=== PATIENT | female | born 1995 | race Caucasian/White ===

== ENCOUNTER 2017-08-26 18:55 | Emergency (ER) | payer OTHER, SELFPAY | END 2017-08-26 20:27 | disposition home or self-care (01) | PROVIDERS: Emergency Provider Nurse Practitioner Family; Visit Provider Nurse Practitioner Family | DX: A08.4 Viral intestinal infection, unspecified (principal) | CPT/HCPCS: 87804; 99201 ==

== ENCOUNTER 2017-09-20 13:07 | Emergency (ER) | payer MEDICAID, SELFPAY ==
[2017-09-20 13:25] VITALS: BP 114/58; PULSE 90; RESP 20; TEMP 36.6; O2SAT 99; BMI 19.8
--- NOTE | 2017-09-20 13:39 | XR_ITS ---
XR chest 2V Ordering Physician: Roldan Contreras Patient Age: 22 years: Female HISTORY: ITS.REASON: pain in rt rib TECHNIQUE: PA and lateral chest COMPARISON : Previous chest film 12/22/2016 FINDINGS Lungs appear mildly hyperexpanded but clear with no active disease. No definitive focal pneumonia. Upper normal markings at the right base just above right hemidiaphragm I believe reflects confluence of markings and overlapping shadows including possibly nipple shadow. Nothing definitely acute The heart irena and mediastinal structures appear satisfactory. IMPRESSION: . Nothing definitely acute. No significant change.
--- NOTE | 2017-09-20 13:40 | HMH.EDUTC ---
[facility] [place] Disposition Clinical Impression: Bronchitis Disposition: Home, Self-Care Condition on Discharge: Good Instructions: Acute Bronchitis Additional Instructions: Increase fluids, rest, Tylenol or ibuprofen as needed for pain or fever Antibiotics as ordered Follow up with primary care this week If symptoms worsen or do not improve return or be seen in the ER Prescriptions: Azithromycin [Zithromax 250mg tab] 250 mg PO DIRECTED #6 tab Time of Disposition: 14:12 Medical Decision Making Vital Signs: 09/20/17 13:25 Temperature 97.8 F Temperature Source Temporal Artery Scan Pulse Rate [Right Radial] 90 Respiratory Rate 20 Blood Pressure [Right Arm] 114/58 Blood Pressure Mean [Right Arm] 76 Blood Pressure Source [Right Arm] Automatic Cuff Blood Pressure Position [Right Arm] Sitting 02 Sat by Pulse Oximetry 99 Oxygen Delivery Method Room Air Orders (Tests/Meds): ORDERS Category Date Time Status XR chest 2V Stat Exams 09/20/17 13:39 Taken - Parish Inquiry Pt receiving controlled substance: No [facility] [place] HPI - General Stated complaint: cough,ribs are hurting Time Seen by Provider: 09/20/17 13:40 Mode of Arrival: Ambulatory Source of Information: Patient Limitations: No Limitations Description of Symptoms (Recalled from Triage Doc. by RN): Cough x 1 week, rib pain x 2 days from coughing HEENT Symptoms (Recalled from RN notes): No Resp Symptoms (Recalled from RN notes): Yes (cough) Skin Symptoms (Recalled from RN notes): No MS Symptoms (Recalled from RN notes): Yes (rib pain) Functional Status (Recalled from RN notes): NA - History of Present Illness Provider Complaint: 22-year-old female presents for flulike symptoms that started 2 weeks ago. Patient states now she is coughing up yellow-green sputum and nasal congestion. Patient states she has pain in the right posterior rib. - Related Data Previous Rx's Medication Instructions Recorded Azithromycin [Zithromax 250mg 250 mg PO DIRECTED #6 tab 09/20/17 tab] Allergies Allergy/AdvReac Type Severity Reaction Status Date / Time No Known Allergies Allergy Verified 09/20/17 13:32 - Worker's Comp Is this a Worker's Comp case?: No Is this an [facility] Worker's Comp?: No Is this a [facility] Worker's Comp?: No [facility] History I have reviewed the patient's past medical history: Yes Medical History: Denies:: Cancer, Diabetes Mellitus Type 1, Diabetes Mellitus Type 2, MRSA Laterality Cases: Bilateral: Tonsillectomy Amputation: No Fractures: No - *Social History Educational Level: Attended High School Smoking Status: Current every day smoker Tobacco Type: cigarettes Alcohol Intake: never - Psychiatric History Expresses thoughts of harming self/others: None Suicide Plan Description: No Plan ROS Obtained: Yes Systems reviewed as appropriate & no additional complaints - Constitutional Constitutional: Reports system reviewed and no additional complaints, except as docu - Eyes Eyes: Reports system reviewed and no additional complaints, except as docu - ENT Ears, Nose, Mouth, and Throat: Reports system reviewed and no additional complaints, except as docu, Reports nasal discharge - Cardiovascular Cardiovascular: Reports system reviewed and no additional complaints, except as docu - Respiratory Respiratory: Yes system reviewed and no additional complaints, except as docu, Yes as per HPI, Yes change in phlegm color, Yes chest congestion, Yes cough, Yes pain with cough - Gastrointestinal Gastrointestingal: Reports: system reviewed and no additional complaints, except as docu - Musculoskeletal Musculoskeletal: Reports system reviewed and no additional complaints, except as docu - Integumentary/Breasts Skin/Breast: Reports system reviewed and no additional complaints, except as docu - Neurologic Neurologic: Reports system reviewed and no additional complaints, except as docu - Endocrine Endocrine: Reports system revie
--- NOTE | 2017-09-20 13:43 | ED_ITS ---
[facility] [place] Disposition Clinical Impression: Bronchitis Disposition: Home, Self-Care Condition on Discharge: Good Instructions: Acute Bronchitis Additional Instructions: Increase fluids, rest, Tylenol or ibuprofen as needed for pain or fever Antibiotics as ordered Follow up with primary care this week If symptoms worsen or do not improve return or be seen in the ER Prescriptions: Azithromycin [Zithromax 250mg tab] 250 mg PO DIRECTED #6 tab Time of Disposition: 14:12 Medical Decision Making Vital Signs: 09/20/17 13:25 Temperature 97.8 F Temperature Source Temporal Artery Scan Pulse Rate [Right Radial] 90 Respiratory Rate 20 Blood Pressure [Right Arm] 114/58 Blood Pressure Mean [Right Arm] 76 Blood Pressure Source [Right Arm] Automatic Cuff Blood Pressure Position [Right Arm] Sitting 02 Sat by Pulse Oximetry 99 Oxygen Delivery Method Room Air Orders (Tests/Meds): ORDERS Category Date Time Status XR chest 2V Stat Exams 09/20/17 13:39 Taken - Parish Inquiry Pt receiving controlled substance: No [facility] [place] HPI - General Stated complaint: cough,ribs are hurting Time Seen by Provider: 09/20/17 13:40 Mode of Arrival: Ambulatory Source of Information: Patient Limitations: No Limitations Description of Symptoms (Recalled from Triage Doc. by RN): Cough x 1 week, rib pain x 2 days from coughing HEENT Symptoms (Recalled from RN notes): No Resp Symptoms (Recalled from RN notes): Yes (cough) Skin Symptoms (Recalled from RN notes): No MS Symptoms (Recalled from RN notes): Yes (rib pain) Functional Status (Recalled from RN notes): NA - History of Present Illness Provider Complaint: 22-year-old female presents for flulike symptoms that started 2 weeks ago. Patient states now she is coughing up yellow-green sputum and nasal congestion. Patient states she has pain in the right posterior rib. - Related Data Previous Rx's Medication Instructions Recorded Azithromycin [Zithromax 250mg 250 mg PO DIRECTED #6 tab 09/20/17 tab] Allergies Allergy/AdvReac Type Severity Reaction Status Date / Time No Known Allergies Allergy Verified 09/20/17 13:32 - Worker's Comp Is this a Worker's Comp case?: No Is this an [facility] Worker's Comp?: No Is this a [facility] Worker's Comp?: No [facility] History I have reviewed the patient's past medical history: Yes Medical History: Denies:: Cancer, Diabetes Mellitus Type 1, Diabetes Mellitus Type 2, MRSA Laterality Cases: Bilateral: Tonsillectomy Amputation: No Fractures: No - *Social History Educational Level: Attended High School Smoking Status: Current every day smoker Tobacco Type: cigarettes Alcohol Intake: never - Psychiatric History Expresses thoughts of harming self/others: None Suicide Plan Description: No Plan ROS Obtained: Yes Systems reviewed as appropriate & no additional complaints - Constitutional Constitutional: Reports system reviewed and no additional complaints, except as docu - Eyes Eyes: Reports system reviewed and no additional complaints, except as docu - ENT Ears, Nose, Mouth, and Throat: Reports system reviewed and no additional complaints, except as docu, Reports nasal discharge - Cardiovascular Cardiovascular: Reports system reviewed and no additional complaints, except as docu - R
== END 2017-09-20 14:36 | disposition home or self-care (01) ==
PROVIDERS: Emergency Provider Nurse Practitioner Family; Family Provider Emergency Medicine
DX: J20.9 Acute bronchitis, unspecified (principal); F17.210 Nicotine dependence, cigarettes, uncomplicated
CPT/HCPCS: 71046; 99202

== ENCOUNTER 2017-10-16 02:00 | Emergency (ER) | payer MEDICAID, SELFPAY ==
[2017-10-16 02:04] VITALS: BP 104/62; PULSE 90; RESP 18; TEMP 36.8; O2SAT 98; BMI 18.8
[2017-10-16 02:35] LABS: Strep Scrn Group A (Rapid) Negative (Negative)
--- NOTE | 2017-10-16 02:39 | XR_ITS ---
XR chest 2V HISTORY: ITS.REASON: productive cough ORDERING PHYSICIAN: Desmond Palencia MD PATIENT AGE: 22 years COMPARISON: 09/20/2017 FINDINGS: The cardiomediastinal silhouette and pulmonary vascularity are within normal limits. The lungs are clear without infiltrates, suspicious nodules, or pleural effusions. No acute bony abnormalities. IMPRESSION: Negative chest, no acute finding, no significant change
[2017-10-16 03:02] LABS: Basophils # 0.1 K/mm3 (0-0.2); Basophils % 0.4 % (0.1-2.0); Eosinophils # 0.4 K/mm3 (0.0-0.4); Eosinophils % 3.1 % (0.1-12.0); Hemoglobin 13.3 g/dL (12.2-16.2); Lymphocytes # 2.6 K/mm3 (0.7-4.5); Lymphocytes % 21.8 K/mm3 (10-50); Mean Corpuscular HGB Conc 33.2 g/dL (31.8-35.4); Mean Corpuscular Hemoglobin 29.2 pg (27.0-31.2); Mean Corpuscular Volume 88.1 fl (81-99); Mean Platelet Volume 8.3 fl (7.4-10.4); Monocytes # 0.6 K/mm3 (0.1-1.0); Monocytes % 4.6 % (1.7-9.3); Neutrophils # 8.5 K/mm3 (1.8-7.8); Neutrophils % 70.2 % (37.0-80.0); Platelet Count 232 K/mm3 (142-424); Red Blood Count 4.54 M/mm3 (4.20-5.40); Red Cell Distribution Width 12.8 % (11.5-17.5); White Blood Count 12.1 K/mm3 (4.8-10.8)
[2017-10-16 03:04] LABS: Appearance,Urine CLEAR (Clear); Bilirubin,Urine Negative (Negative); Blood, Urine Negative (Negative); Color,Urine YELLOW (Yellow); Glucose,Urine (UA) Negative (Negative); Ketones,Urine Negative (Negative); Leukocyte Esterase,Urine Negative (Negative); Microscopic, Urine URINE MICROSCOPIC (MICROSCOPIC); Nitrate,Urine Negative (Negative); Protein,Urine TRACE (Negative); Specific Gravity, Urine 1.025 (1.005-1.030); Urobilinogen,Urine 0.2 EU/dl (0.2)
[2017-10-16 03:07] LABS: Urine Pregnancy, HCG Qual. Negative (Negative)
[2017-10-16 03:25] LABS: Bacteria,Urine 1+ /lpf; Mucus,Urine 2+ /lpf
[2017-10-16 03:39] LABS: Alanine Aminotransferase 30 U/L (12-78); Albumin Level 3.7 gm/dL (3.4-5.0); Albumin/Globulin Ratio 0.9 (1.1-1.8); Alkaline Phosphatase 114 U/L (46-116); Anion Gap 12.8 mEq/L (5-15); Aspartate Amino Transferase 19 U/L (15-37); Bilirubin,Total 0.3 mg/dL (0.2-1.0); Blood Urea Nitrogen 15 mg/dL (7-18); Carbon Dioxide 27 mmol/L (21.0-32.0); Chloride 104 mmol/L (98-107); Creatinine Clearance Estimated 90 mL/min (0-300); Estimated Glomerular Filt Rate 105 ml/min (>60); GFR (African American) 127 ML/MIN (>60); Globulin 4.3 gm/dl (1.3-3.2); Glucose 95 mg/dL (74-106); Potassium 3.8 mmoL/L (3.5-5.1); Sodium 140 mmol/L (136-145)
--- NOTE | 2017-10-16 03:47 | HMH.EDNVD ---
ED Disposition Clinical Impression: Bronchitis Disposition: Home, Self-Care Condition on Discharge: Good Instructions: Nausea and Vomiting-Adult Additional Instructions: use meds and see pcp for follow up Prescriptions: Azithromycin [Zithromax 250mg tab] 250 mg PO DIRECTED #6 tab Benzonatate [Tessalon Perle 100mg Cap] 100 mg PO TID #30 cap Ondansetron HCl [Zofran 4mg Tab] 4 mg PO TID #15 tab - Critical Care Critical Care Time: No Attestation: On 10/16/17, the high probability of a clinically significant, sudden or life threatening deterioration of the following system(s) required my full and direct attention, intervention and personal management. The time I documented below is in addition to time spent performing reported procedures but includes the following listed in this critical care notation. Medical Decision Making - Medical Records Medical records reviewed: Yes: I reviewed the patient's medical records. Vital Signs: 10/16/17 02:04 Temperature 98.2 F Temperature Source Oral Pulse Rate [Right Radial] 90 Respiratory Rate 18 Blood Pressure [Right Arm] 104/62 Blood Pressure Mean [Right Arm] 76 Blood Pressure Source [Right Arm] Automatic Cuff Blood Pressure Position [Right Arm] Sitting 02 Sat by Pulse Oximetry 98 Oxygen Delivery Method Room Air - Lab Data Lab results reviewed: Yes: I reviewed the patient's lab results. Lab Results 10/16/17 02:15: Influenza Type A Ag Negative, Influenza Type B Ag Negative, Group A Strep Rapid Negative 10/16/17 02:55: WBC 12.1 H, RBC 4.54, Hgb 13.3, Hct 40.0, MCV 88.1, MCH 29.2, MCHC 33.2, RDW 12.8, Plt Count 232, MPV 8.3, Neut % (Auto) 70.2, Lymph % (Auto) 21.8, [place] % (Auto) 4.6, Eos % (Auto) 3.1, Baso % (Auto) 0.4, Neut # (Auto) 8.5 H, Lymph # (Auto) 2.6, [place] # (Auto) 0.6, Eos # (Auto) 0.4, Baso # (Auto) 0.1 10/16/17 02:55: Sodium 140, Potassium 3.8, Chloride 104, Carbon Dioxide 27, Anion Gap 12.8, BUN 15, Creatinine 0.70, Estimated Creat Clear 90, Estimated GFR 105, Est GFR ( Amer) 127, Glucose 95, Calcium 9.0, Total Bilirubin 0.3, AST 19, ALT 30, Alkaline Phosphatase 114, Total Protein 8.0, Albumin 3.7, Globulin 4.3 H, Albumin/Globulin Ratio 0.9 L 10/16/17 03:00: Urine Color Yellow, Urine Appearance Clear, Urine pH 6.0, Ur Specific [place] 1.025, Urine Protein Trace, Urine Glucose (UA) Negative, Urine Ketones Negative, Urine Blood Negative, Urine Nitrate Negative, Urine Bilirubin Negative, Urine Urobilinogen 0.2, Ur Leukocyte Esterase Negative, Urine WBC 3-5, Ur Squamous Epith Cells 3-5, Urine Bacteria 1+, Urine Mucus 2+ 10/16/17 03:00: Urine HCG, Qual Negative Result diagrams: 10/16/17 02:55 10/16/17 02:55 Orders (Tests/Meds): ORDERS Category Date Time Status Chest XR 2 view (NOT portable) [XR chest 2V] Stat Exams 10/16/17 02:39 Ordered Strep Screen Confirmation Stat Micro 10/16/17 02:15 Received - Radiology Data #1 Image(s): Chest Image Reviewed: Yes I reviewed the patient's radiology image Preliminary Findings: Normal/NAD - Parish Inquiry Pt receiving controlled substance: No Nausea/Vomiting/Diarrhea HPI - General Chief complaint: Nausea/Vomiting/Diarrhea Stated complaint: Vomiting,Cough,Sore Throat Time Seen by Provider: 10/16/17 03:48 Mode of Arrival: Ambulatory Source of Information: Patient Limitations: No Limitations Description of Symptoms (Recalled from ER Triage Doc. by RN): Pt. reprots nasal/head congestion, productive cough, sore throat, vomiting, and chills that started yesterday. 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
--- NOTE | 2017-10-16 03:56 | ED_ITS ---
ED Disposition Clinical Impression: Bronchitis Disposition: Home, Self-Care Condition on Discharge: Good Instructions: Nausea and Vomiting-Adult Additional Instructions: use meds and see pcp for follow up Prescriptions: Azithromycin [Zithromax 250mg tab] 250 mg PO DIRECTED #6 tab Benzonatate [Tessalon Perle 100mg Cap] 100 mg PO TID #30 cap Ondansetron HCl [Zofran 4mg Tab] 4 mg PO TID #15 tab - Critical Care Critical Care Time: No Attestation: On 10/16/17, the high probability of a clinically significant, sudden or life threatening deterioration of the following system(s) required my full and direct attention, intervention and personal management. The time I documented below is in addition to time spent performing reported procedures but includes the following listed in this critical care notation. Medical Decision Making - Medical Records Medical records reviewed: Yes: I reviewed the patient's medical records. Vital Signs: 10/16/17 02:04 Temperature 98.2 F Temperature Source Oral Pulse Rate [Right Radial] 90 Respiratory Rate 18 Blood Pressure [Right Arm] 104/62 Blood Pressure Mean [Right Arm] 76 Blood Pressure Source [Right Arm] Automatic Cuff Blood Pressure Position [Right Arm] Sitting 02 Sat by Pulse Oximetry 98 Oxygen Delivery Method Room Air - Lab Data Lab results reviewed: Yes: I reviewed the patient's lab results. Lab Results 10/16/17 02:15: Influenza Type A Ag Negative, Influenza Type B Ag Negative, Group A Strep Rapid Negative 10/16/17 02:55: WBC 12.1 H, RBC 4.54, Hgb 13.3, Hct 40.0, MCV 88.1, MCH 29.2, MCHC 33.2, RDW 12.8, Plt Count 232, MPV 8.3, Neut % (Auto) 70.2, Lymph % (Auto) 21.8, [place] % (Auto) 4.6, Eos % (Auto) 3.1, Baso % (Auto) 0.4, Neut # (Auto) 8.5 H, Lymph # (Auto) 2.6, [place] # (Auto) 0.6, Eos # (Auto) 0.4, Baso # (Auto) 0.1 10/16/17 02:55: Sodium 140, Potassium 3.8, Chloride 104, Carbon Dioxide 27, Anion Gap 12.8, BUN 15, Creatinine 0.70, Estimated Creat Clear 90, Estimated GFR 105, Est GFR ( Amer) 127, Glucose 95, Calcium 9.0, Total Bilirubin 0.3, AST 19, ALT 30, Alkaline Phosphatase 114, Total Protein 8.0, Albumin 3.7, Globulin 4.3 H, Albumin/Globulin Ratio 0.9 L 10/16/17 03:00: Urine Color Yellow, Urine Appearance Clear, Urine pH 6.0, Ur Specific [place] 1.025, Urine Protein Trace, Urine Glucose (UA) Negative, Urine Ketones Negative, Urine Blood Negative, Urine Nitrate Negative, Urine Bilirubin Negative, Urine Urobilinogen 0.2, Ur Leukocyte Esterase Negative, Urine WBC 3-5 , Ur Squamous Epith Cells 3-5, Urine Bacteria 1+, Urine Mucus 2+ 10/16/17 03:00: Urine HCG, Qual Negative Result diagrams: 10/16/17 02:55 10/16/17 02:55 Orders (Tests/Meds): ORDERS Category Date Time Status Chest XR 2 view (NOT portable) [XR chest 2V] Stat Exams 10/16/17 02:39 Ordered Strep Screen Confirmation Stat Micro 10/16/17 02:15 Received - Radiology Data #1 Image(s): Chest Image Reviewed: Yes I reviewed the patient's radiology image Preliminary Findings: Normal/NAD - Parish Inquiry Pt receiving controlled substance: No Nausea/Vomiting/Diarrhea HPI - General Chief complaint: Nausea/Vomiting/Diarrhea Stated complaint: Vomiting,Cough,Sore Throat Time Seen by Provider: 10/16/17 03:48 Mode of Arrival: Ambulatory Source of Information: Patient Limitations: No Limitations Description of Symptoms (Recalled from ER Triage Doc. by RN): Pt. rep
[2017-10-16 04:15] VITALS: BP 110/64; PULSE 90; RESP 18; TEMP 36.7; O2SAT 98
== END 2017-10-16 04:15 | disposition home or self-care (01) ==
PROVIDERS: Emergency Provider Emergency Medicine; Family Provider Emergency Medicine
DX: J20.9 Acute bronchitis, unspecified (principal); F17.210 Nicotine dependence, cigarettes, uncomplicated
CPT/HCPCS: 71046; 80053; 81001; 81025; 85025; 87275; 87276; 87430; 99282

== ENCOUNTER 2017-11-10 20:19 | Emergency (ER) | payer MEDICAID, SELFPAY ==
[2017-11-10 20:56] VITALS: BP 102/63; PULSE 82; RESP 18; TEMP 36.9; O2SAT 98; BMI 20.7
--- NOTE | 2017-11-10 21:31 | HMH.EDUTC ---
[facility] [place] Disposition Clinical Impression: Upper respiratory virus Disposition: Home, Self-Care Condition on Discharge: Good Instructions: DI for Viral Upper Respiratory Infection -- Adult Additional Instructions: * No sign of bacterial infection. Likely viral. Virus can take 7-14 days to run their course * Nasal Saline to remove nasal drainage and help with nasal congestion. Hard to eat, drink, sleep with nasal congestion so important to keep nose cleaned out * Monitor Temp. follow up if fever deveops * Encourage fluids, water, gatorade, powerade, pedialyte if /toddler/child * warm salt water gargles * warm fluids * sore throat lozenges * sleep elevated * humidifier/vaporizer * Mucinex during the day for your cough and cough suppressant only at night. Be sure to drink lots of water. Insurance may not cover a prescription of mucinex. Might be cheaper to get 400mg tablets and take 2 tablets morning, midday and evening all with lots of water. * Promethazine DM cough syrup will cause drowsiness. Use it only at night. No driving, operating machinery or caring for small children after taking it. Follow up with primary care IMMEDIATELY for new or worsening symptoms OR no noticeable improvement over the next 48-72 hours. 911 for difficulty breathing or swallowing. Prescriptions: Promethazine/Dextromethorphan [Promethazine-Dm Syrup] 5 - 10 ml PO HS PRN #120 ml PRN Reason: Cough Time of Disposition: 22:10 Medical Decision Making - Parish Inquiry Pt receiving controlled substance: No Vital Signs: 11/10/17 20:56 11/10/17 22:06 Temperature 98.4 F 98.4 F Temperature Source Temporal Artery Scan Temporal Artery Scan Pulse Rate 82 Pulse Rate [Brachial] 82 Respiratory Rate 18 18 Blood Pressure 102/63 Blood Pressure [Right Arm] 102/63 Blood Pressure Mean [Right Arm] 76 Blood Pressure Source [Right Arm] Automatic Cuff Blood Pressure Position Sitting Blood Pressure Position [Right Arm] Sitting 02 Sat by Pulse Oximetry 98 Oxygen Delivery Method Room Air Room Air [facility] [place] HPI - General Stated complaint: cough Time Seen by Provider: 11/10/17 21:31 Mode of Arrival: Ambulatory Source of Information: Patient Limitations: No Limitations Description of Symptoms (Recalled from Triage Doc. by RN): DX WITH BRONCHITIS LAST WEEK AND HAS NOT GOTTEN ANY BETTER HEENT Symptoms (Recalled from RN notes): No Resp Symptoms (Recalled from RN notes): Yes Skin Symptoms (Recalled from RN notes): No MS Symptoms (Recalled from RN notes): No Functional Status (Recalled from RN notes): NA - History of Present Illness Provider Complaint: c/o cough x 2-3 days. I think I have bronchitis again . Dx w/ bronchitis one month ago. Symptoms resolved but cough returned over the weekend. Daughter w/ same symptoms. No treatment before arrival. Requesting something to help her sleep because cough worse at night. + tobacco use. No wheezing or fever. - Related Data Previous Rx's Medication Instructions Recorded Azithromycin [Zithromax 250mg 250 mg PO DIRECTED #6 tab 10/16/17 tab] Benzonatate [Tessalon Perle 100mg 100 mg PO TID #30 cap 10/16/17 Cap] Ondansetron HCl [Zofran 4mg Tab] 4 mg PO TID #15 tab 10/16/17 Promethazine/Dextromethorphan 5 - 10 ml PO HS PRN #120 ml 11/10/17 [Promethazine-Dm Syrup] Allergies Allergy/AdvReac Type Severity Reaction Status Date / Time No Known Allergies Allergy Verified 10/16/17 02:11 - Worker's Comp Is this a Worker's Comp case?: No [facility] History I have reviewed the patient's past medical history: Yes Medical History: Denies:: Asthma, Cancer, Chronic Obstructive Pulmonary Disease (COPD), Diabetes Mellitus Type 1, Diabetes Mellitus Type 2, Hypertension, MRSA Laterality Cases: Bilateral: Tonsillectomy Other Surgeries: Yes: , Other (tonsillectomy, endometriosis) Amputation: No Fractures: No - Social History Smoking Status: Current every day smoker Tobacco Type: cigar
[2017-11-10 22:06] VITALS: BP 102/63; PULSE 82; RESP 18; TEMP 36.9; O2SAT 98
== END 2017-11-10 22:12 | disposition home or self-care (01) ==
PROVIDERS: Emergency Provider Nurse Practitioner Family; Family Provider Emergency Medicine
DX: J06.9 Acute upper respiratory infection, unspecified (principal)
CPT/HCPCS: 99202

== ENCOUNTER → 2019-10-19 09:03 | Outpatient (CLI) | payer OTHER, SELFPAY ==
[2019-10-21 23:43] LABS: Neisseria gonorrhoeae, NAA Negative (Negative)
== END ==
PROVIDERS: Visit Provider Nurse Practitioner Obstetrics & Gynecology
DX: Z72.51 High risk heterosexual behavior (principal)
CPT/HCPCS: 87491; 87591

== ENCOUNTER 2020-07-12 18:07 | Emergency (ER) | payer OTHER, SELFPAY ==
--- NOTE | 2020-07-12 18:00 | ECG_ITS ---
APPROVED REPORT Exam: Resting ECG HR:96 bpm ECG Measurements Heart Rate 96 AXES MS 118 P 65 QRSd 82 QRS 61 QT 328 T 43 QTc 414 Conclusion Normal sinus rhythm with sinus arrhythmia Normal ECG Electronically signed by : Jose Enrique Sesay, 07/14/2020 06:57:31
[2020-07-12 18:07] VITALS: BP 118/76; PULSE 107; RESP 18; TEMP 36.6; O2SAT 98; BMI 22.1
--- NOTE | 2020-07-12 18:09 | XR_ITS ---
PROCEDURE: XR CHEST PORTABLE CLINICAL HISTORY: SOB Sudden onset chest pain and shortness of breath COMPARISON: CR CXR2V XR chest 2V from 09/20/2017 CR CXR2V XR chest 2V from 10/16/2017 CR CXR2V XR chest 2V from 05/07/2018 FINDINGS: The cardiomediastinal silhouette and pulmonary vascularity are within normal limits. The lungs are clear without infiltrates, suspicious nodules, or pleural effusions. No acute bony abnormalities. IMPRESSION: No acute findings. Dictated by: Carlos Dale MD 07/13/2020 05:19 Carlos Dale MD in [place] 07/13/2020 05:19
[2020-07-12 18:21] LABS: Microscopic, Urine URINE MICROSCOPIC (MICROSCOPIC)
[2020-07-12 18:25] LABS: Basophils % 0.5 % (0.1-2.0); Eosinophils # 0.1 K/mm3 (0.0-0.4); Eosinophils % 1.2 % (0.1-12.0); Hematocrit 44.2 % (37.0-47.0); Hemoglobin 14.9 g/dL (12.2-16.2); Lymphocytes # 2.5 K/mm3 (0.7-4.5); Mean Corpuscular HGB Conc 33.6 g/dL (31.8-35.4); Mean Corpuscular Hemoglobin 31.7 pg (27.0-31.2); Mean Corpuscular Volume 94.2 fl (81-99); Mean Platelet Volume 8.1 fl (7.4-10.4); Monocytes # 0.4 K/mm3 (0.1-1.0); Monocytes % 5.5 % (1.7-9.3); Neutrophils # 4.4 K/mm3 (1.8-7.8); Neutrophils % 58.7 % (37.0-80.0); Platelet Count 190 K/mm3 (142-424); Red Blood Count 4.69 M/mm3 (4.20-5.40); Red Cell Distribution Width 13.2 % (11.5-17.5); White Blood Count 7.4 K/mm3 (4.8-10.8)
[2020-07-12 18:26] LABS: Appearance,Urine CLEAR (Clear); Bilirubin,Urine Negative (Negative); Blood, Urine Negative (Negative); Color,Urine YELLOW (Yellow); Glucose,Urine (UA) Negative (Negative); Ketones,Urine Negative (Negative); Leukocyte Esterase,Urine Negative (Negative); Nitrate,Urine Negative (Negative); PH,Urine 6.5 (5.0-8.5); Protein,Urine Negative (Negative); Specific Gravity, Urine 1.025 (1.005-1.030); Urobilinogen,Urine 0.2 EU/dl (0.2)
[2020-07-12 18:27] LABS: Chloride 105 mmol/L (98-107); Potassium 3.7 mmoL/L (3.5-5.1); Sodium 143 mmol/L (136-145)
--- NOTE | 2020-07-12 18:28 | HMH.EDGENADL ---
ED Disposition Clinical Impression: Panic anxiety syndrome Syncope Qualifiers: Encounter type: initial encounter Disposition: Still a Patient Condition on Discharge: Undetermined Referrals: Jose Enrique Majano MD [Primary Care Provider] - - Critical Care Critical Care Time: No Attestation: On 07/12/20, the high probability of a clinically significant, sudden or life threatening deterioration of the following system(s) required my full and direct attention, intervention and personal management. The time I documented below is in addition to time spent performing reported procedures but includes the following listed in this critical care notation. Medical Decision Making - Medical Records Medical records reviewed: Yes: I reviewed the patient's medical records. - Parish Inquiry Pt receiving controlled substance: No Vital Signs: 07/12/20 18:07 Temperature 98 F Temperature Source Oral Pulse Rate [Radial] 107 H Respiratory Rate 18 Blood Pressure [Right Arm] 118/76 Blood Pressure Mean [Right Arm] 90 Blood Pressure Position [Right Arm] Sitting 02 Sat by Pulse Oximetry 98 Oxygen Delivery Method Room Air - Lab Data Lab Results 07/12/20 18:10: WBC 7.4, RBC 4.69, Hgb 14.9, Hct 44.2, MCV 94.2, MCH 31.7 H, MCHC 33.6, RDW 13.2, Plt Count 190, MPV 8.1, Neut % (Auto) 58.7, Lymph % (Auto) 34.0, [place] % (Auto) 5.5, Eos % (Auto) 1.2, Baso % (Auto) 0.5, Neut # (Auto) 4.4, Lymph # (Auto) 2.5, [place] # (Auto) 0.4, Eos # (Auto) 0.1, Baso # (Auto) 0.0 07/12/20 18:10: Sodium 143, Potassium 3.7, Chloride 105, Carbon Dioxide 27, Anion Gap 14.7, BUN 12, Creatinine 0.80, Estimated Creat Clear 91, Estimated GFR 88, Est GFR ( Amer) 107, Glucose 121 H, Calcium 9.7, Total Bilirubin 0.3, Direct Bilirubin 0.1, Conjugated Bilirubin 0.0, Indirect Bilirubin 0.2, Unconjugated Bilirubin 0.2, AST 95 H, ALT 52, Alkaline Phosphatase 47, Troponin I < 0.01, Total Protein 7.8, Albumin 4.9 07/12/20 18:10: Urine Color Yellow, Urine Appearance Clear, Urine pH 6.5, Ur Specific [place] 1.025, Urine Protein Negative, Urine Glucose (UA) Negative, Urine Ketones Negative, Urine Blood Negative, Urine Nitrate Negative, Urine Bilirubin Negative, Urine Urobilinogen 0.2, Ur Leukocyte Esterase Negative, Urine WBC 3-5, Ur Squamous Epith Cells 5-10, Urine Bacteria Trace, Urine Mucus 3+ 07/12/20 18:10: Urine HCG, Qual Negative Result diagrams: 07/12/20 18:10 07/12/20 18:10 Orders (Tests/Meds): ED MEDICATIONS Discontinued Medications Generic Name Dose Route Start Last Admin Trade Name Lexxq PRN Reason Stop Dose Admin Alprazolam 0.5 mg 07/12/20 18:36 07/12/20 19:14 Alprazolam 0.5mg Tablet PO 07/12/20 18:37 0.5 mg ONCE ONE Administration Ketorolac Tromethamine 15 mg 07/12/20 19:45 07/12/20 19:46 Ketorolac 30mg/Ml Vial IV 07/12/20 19:46 15 mg ONCE ONE Administration ORDERS Category Date Time Status XR chest portable Stat Exams 07/12/20 18:09 Taken Troponin I Q3H Lab 07/12/20 21:15 Ordered Troponin I Q3H Lab 07/13/20 00:15 Ordered - ECG Data Tracing #1 ECG normal with no acute: arrhythmias, ischemia, conduction abnormalities, chamber hypertrophy Medical Decision Narrative: 24-year-old female who had a syncope-like episode concern for seizure activity. Patient has no history of seizures and the episode she described is consistent with a panic attack with hyperventilation that caused her hands to be numb and then resulted in syncopal episode that was short associated with some jerking and without a postictal phase upon awakening. She is PERC negative for pulmonary embolism and will be evaluated with syncope work-up including troponin, CBC, CMP, chest x-ray. X-ray is unremarkable initial troponin is negative and remainder labs unremarkable required no action. Patient is given IV Toradol 50 mg for chest pain pressure worse with taking a deep breath and Xanax for anxiety. Pending second troponin at the time of handoff
[2020-07-12 18:29] LABS: Bilirubin,Unconjugated 0.2 mg/dL (0.0-1.1); Blood Urea Nitrogen 12 mg/dl (7-17); Creatinine Clearance Estimated 91 mL/min (50-200); Estimated Glomerular Filt Rate 88 ml/min (>60); GFR (African American) 107 ML/MIN (>60)
[2020-07-12 18:30] LABS: Alanine Aminotransferase 52 U/L (12-78); Albumin Level 4.9 g/dl (3.5-5.0); Alkaline Phosphatase 47 U/L (38-126); Anion Gap 14.7 mEq/L (5-15); Aspartate Amino Transferase 95 U/L (14-36); Bilirubin,Direct 0.1 mg/dl (0.0-0.4); Bilirubin,Indirect 0.2 mg/dL (0.0-0.9); Bilirubin,Total 0.3 mg/dl (0.2-1.3); Calcium 9.7 mg/dl (8.4-10.2); Carbon Dioxide 27 mmol/L (22.0-30.0); Glucose 121 mg/dl (74-100); Total Protein,Serum 7.8 g/dl (6.3-8.2)
[2020-07-12 18:40] LABS: Urine Pregnancy, HCG Qual. Negative (Negative)
[2020-07-12 18:44] LABS: Bacteria,Urine Trace /lpf; Mucus,Urine 3+ /lpf
[2020-07-12 18:51] LABS: Troponin I < 0.01 ng/ml (0.00-0.034)
[2020-07-12 21:22] LABS: Troponin I < 0.01 ng/ml (0.00-0.034)
[2020-07-12 21:38] VITALS: BP 100/61; PULSE 67; RESP 14; TEMP 36.8; O2SAT 96
== END 2020-07-12 21:46 | disposition home or self-care (01) ==
PROVIDERS: Emergency Provider Student in an Organized Health Care Education/Training Program; PCP Family Medicine
DX: R55 Syncope and collapse (principal); F41.0 Panic disorder [episodic paroxysmal anxiety]; F17.210 Nicotine dependence, cigarettes, uncomplicated
CPT/HCPCS: 71045; 80048; 80076; 81001; 81025; 84484; 85025; 93005; 96374; 99283

== ENCOUNTER → 2020-11-29 08:42 | Outpatient (CLI) | payer OTHER, SELFPAY ==
--- NOTE | 2020-11-29 08:53 | US_ITS ---
PROCEDURE: US SOFT TISSUE HEAD AND NECK CLINICAL INDICATION: LYMPHADENOPATHY OF HEAD AND NECK COMPARISON: No exams were available for comparison FINDINGS: Lymph nodes are noted in the bilateral level 2 a cervical yari stations adjacent to the submandibular gland measuring up to 1 times 1.1 x 1 x 0.5 centimeters, demonstrate central fatty hilum and normal morphology. Submandibular glands appear unremarkable. IMPRESSION: Bilateral cervical lymph nodes measuring up to 1.1 centimeters, demonstrate normal morphology. No suspicious mass lesions. Dictated by: Alisa Maher 11/29/2020 15:45 Alisa Maher in [facility] 11/29/2020 15:45
--- NOTE | 2020-11-29 09:36 | MR_ITS ---
PROCEDURE: MR HEAD/BRAIN WO CON CLINICAL INDICATION: RECURRENT HEADACHE, BLURRED VISION COMPARISON: No exams were available for comparison TECHNIQUE: Routine multiplanar multi echo sequences are performed without gadolinium enhancement. FINDINGS: No evidence of restricted diffusion is noted. Low-lying cerebellar tonsils noted. The ventricles are normal in size, shape and symmetry. The faust-white matter differentiation is within normal limits. Brain parenchymal volume is appropriate for the age of the patient. Small mucous retention cyst is noted in the sphenoid sinus. The sella appears unremarkable. No midline shift or mass effect. The infundibular stalk is midline. Visualized optic chiasma appears within normal limits. The visualized medial temporal lobes demonstrate no abnormal signal intensity. IMPRESSION: Unremarkable MRI of the brain. Dictated by: Alisa Maher 11/29/2020 15:59 Alisa Maher in [facility] 11/29/2020 15:59
== END ==
PROVIDERS: PCP Family Medicine; Visit Provider Nurse Practitioner Family
DX: R51.9 Headache, unspecified (principal); H53.8 Other visual disturbances; R59.0 Localized enlarged lymph nodes
CPT/HCPCS: 70551; 76536

== ENCOUNTER → 2020-12-03 09:21 | Outpatient (CLI) | payer OTHER, SELFPAY ==
--- NOTE | 2020-12-03 09:26 | XR_ITS ---
PROCEDURE: XR MULTIPLE SPINE 6+V CLINICAL INDICATION: PAIN IN THORACIC SPINE, CERVICALGIA COMPARISON: No exams were available for comparison FINDINGS: Cervical spine: Reversal of cervical lordosis which may be due to patient positioning or muscle spasm. There is normal alignment. No acute fracture or dislocation. The disc spaces and neural foramina are well preserved. Thoracic spine: Normal alignment. Small Schmorl's nodes are present along the inferior endplate T11 and T10. Minimal anterior osteophytes in the midthoracic spine. No acute fracture or dislocation. No lytic or blastic change IMPRESSION: 1. Reversal of cervical lordosis. 2. Mild degenerative change thoracic spine Dictated by: Carlos Dale MD 12/03/2020 11:03 Carlos Dale MD in [facility] 12/03/2020 11:03
== END ==
PROVIDERS: PCP Nurse Practitioner Family; Visit Provider Nurse Practitioner Family
DX: M54.2 Cervicalgia (principal); M54.6 Pain in thoracic spine
CPT/HCPCS: 72084

== ENCOUNTER → 2021-01-01 09:20 | Outpatient (CLI) | payer OTHER, SELFPAY | PROVIDERS: PCP Family Medicine; Visit Provider Nurse Practitioner Family | DX: Z20.822 Contact with and (suspected) exposure to COVID-19 (principal) | CPT/HCPCS: U0003 ==

== ENCOUNTER → 2021-04-17 15:32 | Outpatient (CLI) | payer OTHER, SELFPAY ==
[2021-04-19 09:32] LABS: HSV 2 IgG, Type Spec <0.91 index (0.00-0.90)
[2021-04-19 13:10] LABS: HSV, IgM I/II Combination <0.91 Ratio (0.00-0.90)
== END ==
PROVIDERS: Visit Provider Nurse Practitioner Obstetrics & Gynecology
DX: Z72.51 High risk heterosexual behavior (principal)
CPT/HCPCS: 36415; 86695; 86790

== ENCOUNTER → 2021-06-24 11:04 | Outpatient (CLI) | payer OTHER, SELFPAY ==
[2021-06-24 12:26] LABS: Triiodothryronine (T3) Uptake 29 % (23.5-40.5)
[2021-06-24 12:27] LABS: Free Thyroxine Index 2.4 ug/dL (5.93-13.13); T4 (Thyroxine) 8.4 ug/dl (5.53-11.0)
[2021-06-24 12:41] LABS: Thyroid Stimulating Hormone 0.83 uIU/mL (0.465-4.68)
[2021-06-25 10:22] LABS: FSH 3.4 mIU/mL (.); LH 5.7 mIU/mL (.)
== END ==
PROVIDERS: Visit Provider Nurse Practitioner Obstetrics & Gynecology
DX: E28.2 Polycystic ovarian syndrome (principal); R53.83 Other fatigue
CPT/HCPCS: 36415; 83001; 83002; 84436; 84443; 84479

== ENCOUNTER → 2021-06-27 14:16 | Outpatient (CLI) | payer OTHER, SELFPAY ==
--- NOTE | 2021-06-27 14:17 | US_ITS ---
PROCEDURE: US TRANSVAGINAL CLINICAL INDICATION: pelvic pain History of ovarian cysts, patient is 6 months post placement of IUD COMPARISON: US PTV US PELVIS-TRANSVAGINAL ONLY from 09/25/2015 FINDINGS: The uterus is normal in size and shows homogeneous echogenicity. The endometrial echo appears normal. There are focal areas of increased echogenicity with acoustic shadowing consistent with IUD within the endometrial cavity. There are small follicular cysts in both ovaries, both ovaries are normal in size. There is a small amount of cul-de-sac fluid somewhat more than seen due to physiologic causes and possibly there has been a recent rupture of an ovarian cyst. IMPRESSION: IUD in place, slightly increased amount of cul-de-sac fluid as described above Dictated by: Dr. Jaxon Alicia MD 06/28/2021 11:42 Dr. Jaxon Alicia MD in [place] 06/28/2021 11:42
== END ==
PROVIDERS: PCP Family Medicine; Visit Provider Nurse Practitioner Obstetrics & Gynecology
DX: R10.2 Pelvic and perineal pain (principal)
CPT/HCPCS: 76830

== ENCOUNTER 2021-09-12 18:03 | Emergency (ER) | payer OTHER, SELFPAY ==
[2021-09-12 19:10] VITALS: BP 104/72; PULSE 77; RESP 19; TEMP 36.9; O2SAT 98; BMI 21.9
--- NOTE | 2021-09-12 19:20 | XR_ITS ---
PROCEDURE INFORMATION: Exam: XR Left Ribs with PA Chest Exam date and time: 09/12/2021 7:20 PM Age: 26 years old Clinical indication: Chest wall pain; Patient HX: Left sided chest pain due to coughing, stated her has covid. TECHNIQUE: Imaging protocol: XR Left ribs with PA chest. Views: 3 views COMPARISON: CR XR CHEST PORTABLE 07/12/2020 6:44 PM FINDINGS: Lungs: The lungs appear clear. No focal areas of consolidation. Pleural spaces: No pleural effusions or appreciable adenopathy. Negative for pneumothorax. Heart/Mediastinum: Cardiac silhouette and pulmonary vasculature are within range of normal. Bones/joints: There is no evidence of acute fracture. No significant soft tissue edema. No subcutaneous emphysema or radiopaque foreign bodies. IMPRESSION: Negative for an acute cardiopulmonary abnormality.
--- NOTE | 2021-09-12 19:50 | HMH.EDUTC ---
[facility] [place] Disposition Clinical Impression: Pleurisy Disposition: Home, Self-Care Condition on Discharge: Good Instructions: Cough, DI for Cough -- Adult, DI for COVID-19 (Suspected or Confirmed ), Preventing the Spread of Coronavirus Discharge Instructions, DI for Pleurisy Additional Instructions: *Monitor Temp, Over the counter Motrin or Tylenol as directed/as needed Tylenol every 4 hours and Motrin every 6 hours (as long as your family doctor has told you that you can take it) for fever or pain. and straight to ER if unable to lower temp less than 101.0 after medication given *Warm salt water gargles may help to soothe the throat *Throat Lozenges *Warm fluids like tea with honey may help to soothe the throat *Sleep elevated *Humidifier/Vaporizer Follow up IMMEDIATELY for new or worsening symptoms or no Noticeable improvement over the next 48-72 hours. 911 for difficulty breathing or swallowing You were tested for today for COVID19 your test result should be back in the next 24-48 hours, you may check your results on the [facility] if you have trouble logging on you can call support or you will get a call if your results are Positive You was given a handout with instructions for Self Quarantine and Self isolation for while you wait on test results and what to do if they are positive If you are positive the Health Dept will be contacting you also Make sure to take your Vitamins Vit. C Vit D and Zinc if you can take them Prescriptions: guaiFENesin [Mucinex 600mg tablet] 1 - 2 tab PO Q12HP PRN #20 tab PRN Reason: Congestion Transmission Status: Pending to [facility] Referrals: Jose Enrique Majano MD [Primary Care Provider] - As needed Time of Disposition: 20:18 Medical Decision Making - Parish Inquiry Pt receiving controlled substance: No Parish was queried for this patient: No Vital Signs: 09/12/21 19:10 Temperature 98.5 F Temperature Source Oral Pulse Rate [Right Brachial] 77 Respiratory Rate 19 Blood Pressure [Right Arm] 104/72 L Blood Pressure Mean [Right Arm] 82 Blood Pressure Source [Right Arm] Automatic Cuff Blood Pressure Position [Right Arm] Sitting 02 Sat by Pulse Oximetry 98 Oxygen Delivery Method Room Air Orders (Tests/Meds): ORDERS Category Date Time Status Covid-19 Nasal PCR ([facility]) Routine Lab 09/12/21 19:10 Received - Radiology Data #1 Image(s): Chest (with left ribs) Image Reviewed: Yes I have reviewed radiologist's interpretation IMPRESSION: Negative for an acute cardiopulmonary abnormality. Medical Decision Narrative: Patient denies has IUD [facility] [place] HPI - General Stated complaint: covid symptoms/sharp pain L rib area Time Seen by Provider: 09/12/21 19:50 Mode of Arrival: Ambulatory Source of Information: Patient Limitations: No Limitations Description of Symptoms (Recalled from Triage Doc. by RN): PATIENT C/O PAIN IN LEFT RIB X 2 DAYS. REQUESTING COVID TEST D/T EXPOSURE HEENT Symptoms (Recalled from RN notes): No Resp Symptoms (Recalled from RN notes): Yes Skin Symptoms (Recalled from RN notes): No MS Symptoms (Recalled from RN notes): No Functional Status (Recalled from RN notes): WNL - History of Present Illness Provider Complaint: Patient state that her was recently positive for COVID State that she is now having symptoms and having a cough State that for the last couple of days she has been having a sharp pain in her left ribs when she takes a deep breath or coughs State that she is unsure if she may have hurt them coughing or may have something else - Related Data Home Medications Medication Instructions Recorded Confirmed levonorgestrel 20 mcg/24 hours (7 INTRAUTERI 04/17/21 06/24/21 yrs) 52 mg intrauterine device spironolactone 100 mg tablet 100 mg PO tab 04/17/21 06/24/21 Previous Rx's Medication Instructions Recorded sulfamethoxazole 800 1 tab PO BID 14 Days #28 tab 04/17/21 mg-trimethoprim 160 mg tablet
[2021-09-12 20:27] VITALS: BP 104/72; PULSE 77; RESP 19; TEMP 36.9; O2SAT 98
== END 2021-09-12 20:30 | disposition home or self-care (01) ==
LOC: ER 18:10 → UTC 18:16
PROVIDERS: Emergency Provider Emergency Medicine; PCP Family Medicine
DX: U07.1 COVID-19 (principal); R09.1 Pleurisy; F17.210 Nicotine dependence, cigarettes, uncomplicated
CPT/HCPCS: 71101; 99202; C9803; G0463; U0003; U0005

== ENCOUNTER 2021-11-27 10:11 | Emergency (ER) | payer OTHER, SELFPAY ==
[2021-11-27 11:50] VITALS: BP 109/66; PULSE 85; RESP 16; TEMP 36.9; O2SAT 98; BMI 23.6
[2021-11-27 12:03] LABS: UTC Influenza A Antigen Negative (Negative)
[2021-11-27 12:04] LABS: UTC Influenza B Antigen Positive (Negative)
--- NOTE | 2021-11-27 12:54 | HMH.EDUTC ---
[facility] [place] Clinical Impression: Influenza B Disposition: Home, Self-Care Condition on Discharge: Good Instructions: Influenza, DI for Influenza -- Adult, Oseltamivir Additional Instructions: Drink plenty of fluids. Take tylenol or ibuprofen for pain or fever. Take the medications as directed. Follow up with your regular doctor. GO TO THE ER FOR ANY WORSENING SYMPTOMS The cough medication (promethazine dm) will make you drowsy, so don't drive or operate heavy machinery after taking it. Prescriptions: Promethazine/Dextromethorphan [Promethazine-Dm Syrup] 5 ml PO Q6HP PRN #240 ml PRN Reason: Cough Transmission Status: Received by [facility] Ondansetron [Zofran 4mg ODT] 4 mg PO Q8HP PRN #20 tab PRN Reason: Nausea Transmission Status: Received by [facility] Oseltamivir Phosphate [Tamiflu 75mg Capsule] 75 mg PO BID #10 cap Transmission Status: Received by [facility] Referrals: Cassie Merrill APRN [Primary Care Provider] - Forms: Work/School Release Time of Disposition: 12:55 Medical Decision Making - Medical Records Medical records reviewed: No: I reviewed the patient's medical records. - Parish Inquiry Pt receiving controlled substance: No Vital Signs: 11/27/21 11:50 11/27/21 13:17 Temperature 98.5 F 98.5 F Temperature Source Oral Pulse Rate 85 Pulse Rate [Left] 85 Respiratory Rate 16 16 Blood Pressure 109/66 L Blood Pressure [Right Arm] 109/66 L Blood Pressure Mean [Right Arm] 80 02 Sat by Pulse Oximetry 98 - Lab Data Lab results reviewed: Yes: I reviewed the patient's lab results. Lab Results 11/27/21 12:03: Influenza Type A Ag Negative, Influenza Type B Ag Positive A [facility] HPI - General Stated complaint: vomiting,diarrhea,fever,congestion Time Seen by Provider: 11/27/21 11:50 Mode of Arrival: Ambulatory Source of Information: Patient Limitations: No Limitations Description of Symptoms (Recalled from Triage Doc. by RN): pt c/o n/v/d, congestion, migraine, fever and fatigue x2 days. HEENT Symptoms (Recalled from RN notes): Yes Resp Symptoms (Recalled from RN notes): No Skin Symptoms (Recalled from RN notes): No MS Symptoms (Recalled from RN notes): No Functional Status (Recalled from RN notes): wnl - History of Present Illness Provider Complaint: She has felt bad for the past 2 days. - Related Data Home Medications Medication Instructions Recorded Confirmed levonorgestrel 20 mcg/24 hours (7 INTRAUTERI 04/17/21 06/24/21 yrs) 52 mg intrauterine device spironolactone 100 mg tablet 100 mg PO tab 04/17/21 06/24/21 Previous Rx's Medication Instructions Recorded sulfamethoxazole 800 1 tab PO BID 14 Days #28 tab 04/17/21 mg-trimethoprim 160 mg tablet valacyclovir 500 mg tablet 500 mg PO DAILY #30 tab 04/22/21 guaiFENesin [Mucinex 600mg tablet] 1 - 2 tab PO Q12HP PRN #20 tab 09/12/21 Ondansetron [Zofran 4mg ODT] 4 mg PO Q8HP PRN #20 tab 11/27/21 Oseltamivir Phosphate [Tamiflu 75 mg PO BID #10 cap 11/27/21 75mg Capsule] Promethazine/Dextromethorphan 5 ml PO Q6HP PRN #240 ml 11/27/21 [Promethazine-Dm Syrup] Allergies Allergy/AdvReac Type Severity Reaction Status Date / Time No Known Allergies Allergy Verified 06/24/21 09:55 - Worker's Comp Is this a Worker's Comp case?: No [facility] History - Hepatitis A Screen Drug use history?: No High risk sexual behaviors?: No History of sexually transmitted infection?: No Currently employed?: No Childcare worker?: No Do you have indoor plumbing?: Yes Do you have electricity?: Yes Attestation statement:: This patient has been screened for Hepatitis A risk factors. I have reviewed the patient's past medical history: Yes Medical History: Denies:: Asthma, Cancer, Chronic Obstructive Pulmonary Disease (COPD), Diabetes Mellitus Type 1, Diabetes Mellitus Type 2, Hypertension, MRSA Laterality Cases: Bilateral: Tonsillectomy Other [place]
[2021-11-27 13:17] VITALS: BP 109/66; PULSE 85; RESP 16; TEMP 36.9
== END 2021-11-27 13:18 | disposition home or self-care (01) ==
PROVIDERS: Emergency Provider Nurse Practitioner Family; PCP Nurse Practitioner Family
DX: J10.1 Influenza due to other identified influenza virus with other respiratory manifestations (principal)
CPT/HCPCS: 87804; 99212; G0463

== ENCOUNTER → 2021-12-24 13:55 | Outpatient (CLI) | payer OTHER, SELFPAY ==
--- NOTE | 2021-12-24 14:09 | US_ITS ---
FINAL REPORT CLINICAL HISTORY: THYROMEGALY FINDINGS: Sonographic images of the thyroid were obtained. The right lobe of the thyroid measures 1.3 x 4.5 x 2.3 cm. The left lobe of the thyroid measures 1.4 x 4.5 x 1.7 cm. There are tiny simple cysts in both lobes of the thyroid measuring up to 3 mm. IMPRESSION: Tiny cysts bilaterally consistent with TI-RADS category 1. No follow-up is required. Reviewed, Interpreted and Dictated by Manny Jauregui MD Transcribed by Ashleigh Minor Authenticated by Manny Jauregui MD on 12/24/2021 04:44:51 PM [facility]
== END ==
PROVIDERS: PCP Nurse Practitioner Family; Visit Provider Nurse Practitioner Family
DX: E01.0 Iodine-deficiency related diffuse (endemic) goiter (principal)
CPT/HCPCS: 76536

== ENCOUNTER 2022-04-03 21:22 | Emergency (ER) | payer OTHER, SELFPAY ==
[2022-04-03 21:23] VITALS: BP 117/68; RESP 16; TEMP 36.9; O2SAT 99; BMI 22.6
--- NOTE | 2022-04-03 21:40 | CT_ITS ---
PROCEDURE INFORMATION: Exam: CT Abdomen And Pelvis With Contrast Exam date and time: 04/03/22 10:12 PM Age: 26 years old Clinical indication: Abdominal pain; Localized; Right upper quadrant (ruq); Additional info: Abdominal pain, ruq epigastric TECHNIQUE: Imaging protocol: Computed tomography of the abdomen and pelvis with contrast. Radiation optimization: All CT scans at this facility use at least one of these dose optimization techniques: automated exposure control; mA and/or kV adjustment per patient size (includes targeted exams where dose is matched to clinical indication); or iterative reconstruction. Contrast material: ISOVUE; Contrast volume: 75 ml; Contrast route: IV; COMPARISON: ABDPELW/O CT ABD PELVIS W/O CONTRAST 04/30/17 06:37 AM FINDINGS: Tubes, catheters and devices: None noted. Lungs: Lung bases appear clear. Heart: No significant coronary calcifications. No cardiomegaly. No significant pericardial effusion. Liver: Normal. No mass. Gallbladder and bile ducts: Normal. No calcified stones. No ductal dilation. Pancreas: Normal. No ductal dilation. Spleen: Normal. No splenomegaly. Adrenal glands: Normal. No mass. Kidneys and ureters: Normal. No hydronephrosis. Stomach and bowel: Unremarkable. No obstruction. No mucosal thickening. Appendix: Retrocecal appendix is well visualized No evidence of appendicitis. Intraperitoneal space: Unremarkable. No free air. No significant fluid collection. Retroperitoneal space: No significant retroperitoneal inflammatory changes are noted. Vasculature: Unremarkable. No abdominal aortic aneurysm. Lymph nodes: Unremarkable. No enlarged lymph nodes. Urinary bladder: Unremarkable as visualized. Reproductive: IUD in place. Bones/joints: Unremarkable. No acute fracture. Soft tissues: Unremarkable. IMPRESSION: No acute findings.
--- NOTE | 2022-04-03 21:44 | HMH.EDABDPAI ---
ED Disposition Clinical Impression: Abdominal pain Qualifiers: Abdominal location: unspecified location Qualified Code(s): R10.9 - Unspecified abdominal pain Disposition: Home, Self-Care Condition on Discharge: Good Instructions: DI for Acute Abdominal Pain Prescriptions: Metoclopramide HCl [Reglan 10mg Tab] 10 mg PO Q6 PRN #30 tab PRN Reason: Nausea Transmission Status: Pending to [facility] Referrals: Cassie Merrill APRN [Primary Care Provider] - - Critical Care Critical Care Time: No Attestation: On , the high probability of a clinically significant, sudden or life threatening deterioration of the following system(s) required my full and direct attention, intervention and personal management. The time I documented below is in addition to time spent performing reported procedures but includes the following listed in this critical care notation. Medical Decision Making - Parish Inquiry Pt receiving controlled substance: Yes Parish was queried for this patient: No Risks and benefits of using a controlled substance: were discussed with pt by me Vital Signs: 04/03/22 21:23 04/03/22 22:36 Temperature 98.5 F Temperature Source Oral Pulse Rate 85 Respiratory Rate 16 Blood Pressure 109/68 L Blood Pressure [Right Arm] 117/68 Blood Pressure Mean [Right Arm] 84 02 Sat by Pulse Oximetry 99 100 Oxygen Delivery Method Room Air Room Air - Lab Data Lab Results 04/03/22 21:28: Urine Color Yellow, Urine Appearance Clear, Urine pH 6.0, Ur Specific [place] >= 1.030, Urine Protein Negative, Urine Glucose (UA) Negative, Urine Ketones Negative, Urine Blood Negative, Urine Nitrate Negative, Urine Bilirubin Negative, Urine Urobilinogen 0.2, Ur Leukocyte Esterase 1+ A, Urine RBC 3-5, Urine WBC 10-20, Urine Bacteria 2+, Urine Mucus 1+ 04/03/22 21:28: Urine HCG, Qual Negative 04/03/22 21:55: WBC 6.8, RBC 4.48, Hgb 13.7, Hct 42.2, MCV 94.1, MCH 30.5, MCHC 32.5, RDW 12.8, Plt Count 214, MPV 8.6, Neut % (Auto) 54.8, Lymph % (Auto) 36.9, [place] % (Auto) 5.8, Eos % (Auto) 1.3, Baso % (Auto) 1.2, Neut # (Auto) 3.7, Lymph # (Auto) 2.5, [place] # (Auto) 0.4, Eos # (Auto) 0.1, Baso # (Auto) 0.1 04/03/22 21:55: Sodium 142, Potassium 3.5, Chloride 107, Carbon Dioxide 27, Anion Gap 11.5, BUN 12, Creatinine 0.80, Estimated Creat Clear 92, Estimated GFR 87, Est GFR ( Amer) 105, Glucose 130 H, Calcium 9.5, Total Bilirubin < 0.1 L, AST 25, ALT 18, Alkaline Phosphatase 57, C-Reactive Protein < 0.3, Total Protein 7.2, Albumin 4.4, Globulin 2.8, Albumin/Globulin Ratio 1.6, Lipase 96 Result diagrams: 04/03/22 21:55 04/03/22 21:55 Orders (Tests/Meds): ED MEDICATIONS Generic Name Dose Route Start Last Admin Trade Name Freq PRN Reason Stop Dose Admin Lactated Ringer's 1,000 mls @ 999 mls/hr 04/03/22 21:45 04/03/22 21:49 Lactated Ringer's 1000 Ml Bag IV 04/03/22 22:45 999 mls/hr .Q1H1M BRIA Administration Discontinued Medications Generic Name Dose Route Start Last Admin Trade Name Freq PRN Reason Stop Dose Admin Belladonna Alkaloids 30 ml 04/03/22 23:27 04/03/22 23:31 Gi Cocktail 60ml Udc PO 04/03/22 23:28 30 ml ONCE ONE Administration Iopamidol 75 ml 04/03/22 22:25 04/03/22 22:26 Iopamidol-370 (76%);100ml Bottle IV 04/03/22 22:26 75 ml ONCE ONE Administration Metoclopramide HCl 10 mg 04/03/22 23:27 04/03/22 23:32 Metoclopramide 10mg Tablet PO 04/03/22 23:28 10 mg ONCE ONE Administration Morphine Sulfate 4 mg 04/03/22 21:40 04/03/22 21:49 Morphine 4mg/Ml Syringe IV 04/03/22 21:41 4 mg ONCE ONE Administration Ondansetron HCl 4 mg 04/03/22 21:40 04/03/22 21:49 Ondansetron 4mg/2ml Vial IV 04/03/22 21:41 4 mg ONCE ONE Administration Sodium Chloride 10 ml 04/03/22 22:25 04/03/22 22:26 Sodium Chloride 0.9% 10ml Syr (Rad Only) IV 04/03/22 22:26 10 ml ONCE ONE Administration ORDERS Category Date Time Status Urine Culture Stat Micro
[2022-04-03 21:57] LABS: Microscopic, Urine URINE MICROSCOPIC (MICROSCOPIC)
[2022-04-03 21:59] LABS: Appearance,Urine CLEAR (Clear); Bilirubin,Urine Negative (Negative); Blood, Urine Negative (Negative); Color,Urine YELLOW (Yellow); Glucose,Urine (UA) Negative (Negative); Ketones,Urine Negative (Negative); Leukocyte Esterase,Urine 1+ (Negative); Nitrate,Urine Negative (Negative); Protein,Urine Negative (Negative); Specific Gravity, Urine >= 1.030 (1.005-1.030); Urobilinogen,Urine 0.2 EU/dl (0.2)
[2022-04-03 22:00] LABS: Urine Pregnancy, HCG Qual. Negative (Negative)
[2022-04-03 22:03] LABS: Basophils # 0.1 K/mm3 (0-0.2); Basophils % 1.2 % (0.1-2.0); Eosinophils # 0.1 K/mm3 (0.0-0.4); Eosinophils % 1.3 % (0.1-12.0); Hematocrit 42.2 % (37.0-47.0); Hemoglobin 13.7 g/dL (12.2-16.2); Lymphocytes # 2.5 K/mm3 (0.7-4.5); Lymphocytes % 36.9 % (10-50); Mean Corpuscular HGB Conc 32.5 g/dL (31.8-35.4); Mean Corpuscular Hemoglobin 30.5 pg (27.0-31.2); Mean Corpuscular Volume 94.1 fl (81-99); Mean Platelet Volume 8.6 fl (7.4-10.4); Monocytes # 0.4 K/mm3 (0.1-1.0); Monocytes % 5.8 % (1.7-9.3); Neutrophils # 3.7 K/mm3 (1.8-7.8); Neutrophils % 54.8 % (37.0-80.0); Platelet Count 214 K/mm3 (142-424); Red Blood Count 4.48 M/mm3 (4.20-5.40); Red Cell Distribution Width 12.8 % (11.5-17.5); White Blood Count 6.8 K/mm3 (4.8-10.8)
[2022-04-03 22:07] LABS: Chloride 107 mmol/L (98-107); Potassium 3.5 mmoL/L (3.5-5.1); Sodium 142 mmol/L (136-145)
[2022-04-03 22:10] LABS: Alanine Aminotransferase 18 U/L (12-78); Albumin Level 4.4 g/dl (3.5-5.0); Albumin/Globulin Ratio 1.6 (1.1-1.8); Alkaline Phosphatase 57 U/L (38-126); Anion Gap 11.5 mEq/L (5-15); Aspartate Amino Transferase 25 U/L (14-36); Blood Urea Nitrogen 12 mg/dl (7-17); Calcium 9.5 mg/dl (8.4-10.2); Carbon Dioxide 27 mmol/L (22.0-30.0); Creatinine Clearance Estimated 92 mL/min (50-200); Estimated Glomerular Filt Rate 87 ml/min (>60); GFR (African American) 105 ML/MIN (>60); Globulin 2.8 g/dL (1.3-3.2); Glucose 130 mg/dl (74-100); Lipase 96 U/L (23-300); Total Protein,Serum 7.2 g/dl (6.3-8.2)
[2022-04-03 22:19] LABS: Bilirubin,Total < 0.1 mg/dl (0.2-1.3); C-Reactive Protein < 0.3 mg/L (0-4)
[2022-04-03 22:36] VITALS: BP 109/68; PULSE 85; O2SAT 100
[2022-04-03 23:05] LABS: Bacteria,Urine 2+ /lpf; Mucus,Urine 1+ /lpf
--- NOTE | 2022-04-03 23:23 | PC.NURSE ---
Pt resting in bed. Complains of small amount of pain. MD notified.
[2022-04-04 00:26] VITALS: BP 102/64; PULSE 77; RESP 16; TEMP 36.7; O2SAT 98
== END 2022-04-04 00:34 | disposition home or self-care (01) ==
PROVIDERS: Emergency Provider Student in an Organized Health Care Education/Training Program; PCP Nurse Practitioner Family
DX: R07.81 Pleurodynia (principal); R10.13 Epigastric pain; R11.0 Nausea; M54.9 Dorsalgia, unspecified; R41.9 Unspecified symptoms and signs involving cognitive functions and awareness; I10 Essential (primary) hypertension; E10.8 Type 1 diabetes mellitus with unspecified complications; J44.9 Chronic obstructive pulmonary disease, unspecified; F17.210 Nicotine dependence, cigarettes, uncomplicated; Z85.9 Personal history of malignant neoplasm, unspecified; Z86.14 Personal history of Methicillin resistant Staphylococcus aureus infection; Z82.49 Family history of ischemic heart disease and other diseases of the circulatory system; Z83.3 Family history of diabetes mellitus
CPT/HCPCS: 74177; 80053; 81001; 81025; 83690; 85025; 86140; 87086; 96361; 96374; 96375; 99285; J2405; Q9967

== ENCOUNTER → 2022-08-12 07:59 | Outpatient (CLI) | payer OTHER, SELFPAY ==
[2022-08-12 08:31] LABS: Basophils # 0.1 K/mm3 (0-0.2); Eosinophils # 0.1 K/mm3 (0.0-0.4); Eosinophils % 1.2 % (0.1-12.0); Hematocrit 42.3 % (37.0-47.0); Hemoglobin 13.8 g/dL (12.2-16.2); Lymphocytes # 1.9 K/mm3 (0.7-4.5); Lymphocytes % 34.7 % (10-50); Mean Corpuscular HGB Conc 32.6 g/dL (31.8-35.4); Mean Corpuscular Hemoglobin 30.4 pg (27.0-31.2); Mean Corpuscular Volume 93.3 fl (81-99); Mean Platelet Volume 8.8 fl (7.4-10.4); Monocytes # 0.3 K/mm3 (0.1-1.0); Monocytes % 4.9 % (1.7-9.3); Neutrophils # 3.2 K/mm3 (1.8-7.8); Neutrophils % 58.1 % (37.0-80.0); Platelet Count 215 K/mm3 (142-424); Red Blood Count 4.54 M/mm3 (4.20-5.40); Red Cell Distribution Width 13.3 % (11.5-17.5); White Blood Count 5.6 K/mm3 (4.8-10.8)
[2022-08-12 08:42] LABS: Hemoglobin A1C 4.9 % (4.0-6.0)
[2022-08-12 09:42] LABS: Chloride 105 mmol/L (98-107); Potassium 4.1 mmoL/L (3.5-5.1); Sodium 139 mmol/L (136-145)
[2022-08-12 09:44] LABS: Blood Urea Nitrogen 12 mg/dl (7-17)
[2022-08-12 09:45] LABS: Alanine Aminotransferase 16 U/L (12-78); Albumin Level 4.6 g/dl (3.5-5.0); Albumin/Globulin Ratio 1.9 (1.1-1.8); Alkaline Phosphatase 54 U/L (38-126); Anion Gap 13.1 mEq/L (5-15); Aspartate Amino Transferase 21 U/L (14-36); Bilirubin,Total 0.3 mg/dl (0.2-1.3); Calcium 9.6 mg/dl (8.4-10.2); Carbon Dioxide 25 mmol/L (22.0-30.0); Chol/HDL Ratio 3.6 (1-3.5); Cholesterol 155 mg/dl (140-200); Estimated Glomerular Filt Rate 87 ml/min (>60); GFR (African American) 105 ML/MIN (>60); Globulin 2.4 g/dL (1.3-3.2); Glucose 87 mg/dl (74-100); HDL Cholesterol 43 mg/dl (40-60); Iron 108 ug/dL (37-170); Triglycerides 68 mg/dl (30-150); VLDL Cholesterol 14 mg/dL (0-40)
[2022-08-12 09:55] LABS: Total Iron Binding Capacity 335 ug/dL (265-497)
[2022-08-12 09:56] LABS: Direct LDL Cholesterol 74.21 mg/dL (100-129)
[2022-08-12 10:02] LABS: 25-OH Vitamin D, Total 44.8 ng/mL (30-100); T4 (Thyroxine) 8.8 ug/dl (5.53-11.0)
[2022-08-12 10:16] LABS: Thyroid Stimulating Hormone 0.69 uIU/mL (0.465-4.68)
[2022-08-12 10:20] LABS: Ferritin 42.9 ng/ml (6.24-137)
[2022-08-12 10:51] LABS: Vitamin B12 286 pg/mL (239-931)
[2022-08-12 11:04] LABS: Folate 4.69 ng/mL
[2022-08-13 10:17] LABS: Triiodothyronine (T3) Total 141 ng/dL (71-180)
== END ==
PROVIDERS: PCP Family Medicine Addiction Medicine; Visit Provider Family Medicine Addiction Medicine
DX: Z01.89 Encounter for other specified special examinations (principal)
CPT/HCPCS: 36415; 80053; 80061; 82306; 82607; 82728; 82746; 83036; 83540; 83550; 84436; 84443; 84480; 85025

== ENCOUNTER 2022-09-25 11:36 | Emergency (ER) | payer OTHER, SELFPAY ==
[2022-09-25 11:38] VITALS: BP 120/67; PULSE 92; RESP 18; TEMP 37.1; O2SAT 98; BMI 23.8
--- NOTE | 2022-09-25 11:49 | CT_ITS ---
FINAL REPORT TECHNIQUE: Thin section axial CT with sagittal reconstruction without contrast. This study was performed with techniques to keep radiation doses as low as reasonably achievable (ALARA). Individualized dose reduction techniques using automated exposure control or adjustment of mA and/or kV according to the patient's size were employed. CLINICAL HISTORY: trauma, neck pain FINDINGS: No fracture is seen. Alignment is normal. No obvious bony spinal canal stenosis is present. No gross disc abnormalities are seen. IMPRESSION: No fracture or malalignment. Reviewed, Interpreted and Dictated by Gertrude Tay MD Transcribed by Ashleigh Minor Authenticated and [facility]
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
[2022-09-25 12:14] LABS: Urine Pregnancy, HCG Qual. Negative (Negative)
[2022-09-25 14:00] VITALS: BP 125/70; PULSE 80; RESP 18; TEMP 36.7; O2SAT 99
== END 2022-09-25 14:00 | disposition home or self-care (01) ==
PROVIDERS: Emergency Provider Emergency Medicine
DX: S16.1XXA Strain of muscle, fascia and tendon at neck level, initial encounter (principal); V47.5XXA Car driver injured in collision with fixed or stationary object in traffic accident, initial encounter
CPT/HCPCS: 72125; 81025; 99284

== ENCOUNTER 2022-11-24 07:45 | Emergency (ER) | payer OTHER, SELFPAY ==
[2022-11-24 07:46] VITALS: BP 101/56; PULSE 74; RESP 16; TEMP 36.7; O2SAT 98; BMI 22.6
[2022-11-24 07:54] VITALS: BP 101/56; PULSE 64; O2SAT 99
[2022-11-24 08:00] VITALS: BP 99/63; PULSE 65; O2SAT 100
--- NOTE | 2022-11-24 08:01 | XR_ITS ---
FINAL REPORT CLINICAL HISTORY: foot pain with extension FINDINGS: RIGHT ANKLE Three views of the right ankle were obtained. A small calcification is seen along the dorsum of the distal talus which could represent small avulsion fracture. No other fracture identified. Visualized joint spaces are normally aligned. Soft tissues are unremarkable. IMPRESSION: Small calcification along the dorsum of the distal talus which could represent small avulsion fracture. Reviewed, Interpreted and Dictated by Sandra Robert MD Transcribed by Ramona Landry Authenticated and [facility]
--- NOTE | 2022-11-24 08:01 | XR_ITS ---
FINAL REPORT CLINICAL HISTORY: foot pain with extension FINDINGS: RIGHT FOOT Three views of the right foot were obtained. A small calcification is seen along the dorsum of the distal talus which could represent small avulsion fracture. No other fracture identified. Visualized joint spaces are normally aligned. Soft tissues are unremarkable. IMPRESSION: Small calcification along the dorsum of the distal talus which could represent small avulsion fracture. Reviewed, Interpreted and Dictated by Sandra Robert MD Transcribed by Ramona Landry Authenticated and [facility]
[2022-11-24 08:30] VITALS: BP 93/60; PULSE 60; O2SAT 100
--- NOTE | 2022-11-24 08:53 | HMH.EDGENADL ---
Discharge Plan Disposition Patient Disposition: Home, Self-Care Chief Complaint: Extremity Injury, Lower Prescriptions Prescriptions: No Action spironolactone 100 mg tablet 100 mg PO DAILY Mirena 20 mcg/24 hours (6 yrs) 52 mg intrauterine device 1 device INTRAUTERI ONCE naproxen sodium [Anaprox DS] 550 mg tablet 550 mg PO HS PRN (Reason: pain) Qty: 14 0RF methocarbamol 500 mg tablet 500 mg PO BID PRN (Reason: pain) Qty: 20 0RF Referrals Follow up/Referrals: Provider,Referral, MD [Primary Care Provider] - See instructions Activity Restrictions/Add. Instructions Additional Instructions/Restrictions: Return for worsening ankle pain difficulty bearing weight or any other issues within the next few days Clinical Impressions Clinical Impression: Acute ankle pain Discharge ED Provider: Sl[facility] ([facility] HPI General Chief complaint: Extremity Injury, Lower Stated complaint: AO 10/29 RT foot pain Time Seen by Provider: 11/24/22 08:00 Mode of Arrival: Ambulatory Source of Information: Patient Limitations: No Limitations Description of Symptoms (Recalled from ER Triage Doc. by RN): pt c/o L ankle/foot pain, pt reports pain is mostly just with extension of foot, reports pain x2 days. Pt reports no recent injury. History of Present Illness HPI narrative: 27-year-old female presents with left foot/ankle injury. This happened 2 weeks ago when her foot was injured when she hit something while she was carrying groceries. However she started having shooting pain in the left dorsum of the foot 2 days ago. She is able to bear weight without difficulty no redness swelling warmth or fever. No other injuries Related Data Home Medications Medication Instructions Recorded Confirmed levonorgestrel 21 mcg/24 hours (8 1 device intrauterine ONCE 04/17/21 08/01/22 yrs) 52 mg intrauterine device control (Mirena) spironolactone 100 mg tablet 100 mg PO DAILY diuresis 04/17/21 08/01/22 Previous Rx's Medication Instructions Recorded methocarbamol 500 mg tablet 500 mg PO BID PRN pain #20 tabs 09/25/22 naproxen sodium 550 mg tablet 550 mg PO HS PRN pain #14 tabs 09/25/22 (Anaprox DS) Allergies Allergy/AdvReac Type Severity Reaction Status Date / Time No Known Allergies Allergy Verified 08/01/22 08:41 PFSH PFSH Disclaimer: The information contained in this section may have been updated after the patient was seen, as this information can be updated by other users. Surgical History (Updated 08/01/22 @ 08:42 by INDIA Milligan) Hx of section Hx of tonsillectomy Social History (Updated 08/01/22 @ 08:42 by INDIA Milligan) Smoking Status: Current every day smoker tobacco type: e-cigarettes second hand exposure: Yes alcohol intake: never current occupational status: employed Travel in the last 8 weeks: None housing: house ROS Obtained: Yes All systems reviewed & no additional complaints except as documented Constitutional Constitutional: Denies fatigue Eyes Eyes: Denies dry eyes ENT Ears, Nose, Mouth, and Throat: Denies dizziness Cardiovascular Cardiovascular: Denies dyspnea Respiratory Respiratory: Denies dyspnea Gastrointestinal Gastrointestingal: Denies nausea Genitourinary Female Genitourinary: Denies pelvic pain Musculoskeletal Musculoskeletal: Reports other (Ankle pain) Neurologic Neurologic: Denies dizziness Endocrine Endocrine: Denies fatigue Physical Exam General General appearance: alert and in no apparent distress Eye Eye exam: Present PERRL and EOMI ENT ENT exam: Present normal exam and normal oropharynx Neck Neck exam: Present normal inspection Chest Chest inspection: Present symmetric chest wall rise Respiratory Respiratory exam: Present normal lung sounds bilaterally; Absent respiratory distress Cardiovascular Cardiovascular exam: Present regular rate and normal rhythm Abdominal Exam Abdominal exam:
[2022-11-24 09:02] VITALS: BP 96/55; PULSE 60; RESP 15; TEMP 36.8; O2SAT 98
== END 2022-11-24 09:04 | disposition home or self-care (01) ==
PROVIDERS: Emergency Provider Emergency Medicine
DX: M79.671 Pain in right foot (principal); I95.9 Hypotension, unspecified; W22.8XXA Striking against or struck by other objects, initial encounter
CPT/HCPCS: 73610; 73630; 99283

== ENCOUNTER → 2022-12-10 08:19 | Outpatient (CLI) | payer OTHER, SELFPAY ==
[2022-12-10 08:39] LABS: Basophils % 0.6 % (0.1-2.0); Eosinophils # 0.1 K/mm3 (0.0-0.4); Hematocrit 41.6 % (37.0-47.0); Hemoglobin 13.5 g/dL (12.2-16.2); Lymphocytes # 2.3 K/mm3 (0.7-4.5); Lymphocytes % 32.8 % (10-50); Mean Corpuscular HGB Conc 32.5 g/dL (31.8-35.4); Mean Corpuscular Hemoglobin 30.2 pg (27.0-31.2); Mean Corpuscular Volume 92.9 fl (81-99); Mean Platelet Volume 8.6 fl (7.4-10.4); Monocytes # 0.3 K/mm3 (0.1-1.0); Monocytes % 4.1 % (1.7-9.3); Neutrophils # 4.3 K/mm3 (1.8-7.8); Neutrophils % 61.5 % (37.0-80.0); Platelet Count 245 K/mm3 (142-424); Red Blood Count 4.48 M/mm3 (4.20-5.40)
[2022-12-10 10:07] LABS: Alanine Aminotransferase 18 U/L (12-78); Albumin Level 4.3 g/dl (3.5-5.0); Albumin/Globulin Ratio 1.8 (1.1-1.8); Alkaline Phosphatase 45 U/L (38-126); Anion Gap 8.2 mEq/L (5-15); Aspartate Amino Transferase 20 U/L (14-36); Bilirubin,Total 0.5 mg/dl (0.2-1.3); Blood Urea Nitrogen 8 mg/dl (7-17); Calcium 8.8 mg/dl (8.4-10.2); Carbon Dioxide 27 mmol/L (22.0-30.0); Chloride 104 mmol/L (98-107); Chol/HDL Ratio 2.8 (1-3.5); Cholesterol 128 mg/dl (140-200); Estimated Glomerular Filt Rate 75 ml/min (>60); GFR (African American) 91 ML/MIN (>60); Globulin 2.4 g/dL (1.3-3.2); Glucose 90 mg/dl (74-100); HDL Cholesterol 45 mg/dl (40-60); Potassium 4.2 mmoL/L (3.5-5.1); Sodium 135 mmol/L (136-145); Total Protein,Serum 6.7 g/dl (6.3-8.2); Triglycerides 63 mg/dl (30-150); VLDL Cholesterol 13 mg/dL (0-40)
[2022-12-10 10:18] LABS: Direct LDL Cholesterol 70.86 mg/dL (100-129)
[2022-12-10 20:13] LABS: Hemoglobin A1C 6.9 % (4.0-6.0)
[2022-12-16 13:54] LABS: HCG,Quantitative < 2 mIU/ml (0-5.42)
== END ==
PROVIDERS: Nurse Practitioner Family; Visit Provider Dermatology
DX: F31.81 Bipolar II disorder (principal); L70.0 Acne vulgaris; Z79.899 Other long term (current) drug therapy
CPT/HCPCS: 36415; 80053; 80061; 83036; 84702; 84703; 85025

== ENCOUNTER 2023-02-22 17:51 | Emergency (ER) | payer OTHER, SELFPAY ==
[2023-02-22 17:55] VITALS: BP 117/65; PULSE 89; RESP 20; TEMP 37; O2SAT 100; BMI 23.8
--- NOTE | 2023-02-22 18:03 | EXP.UTC ---
Discharge Plan Disposition Patient Disposition: Home, Self-Care Condition: Good Prescriptions Prescriptions: New valacyclovir 1 gram tablet 2,000 mg PO BID 1 Days Qty: 4 0RF No Action spironolactone 100 mg tablet 100 mg PO DAILY lurasidone 60 mg tablet 60 mg PO DAILY Referrals Follow up/Referrals: Provider,Referral, [Primary Care Provider] - See instructions Activity Restrictions/Add. Instructions Additional Instructions/Restrictions: Apply topical cream like Abreva to area Take medication as prescribed sometimes it may take a few days after completion of medication to dry up Follow up with your Family Doctor if needed Straight to ER if any life threatening symptoms Clinical Impressions Clinical Impression: Herpes labialis Instructions Patient Instructions: DI for Cold Sores, Cold Sores, Herpes (Alternative Therapy), Valacyclovir Discharge ED Provider: Indu Mosley [facility] General Stated complaint: irritated spot on face Mode of Arrival: Ambulatory Source of Information: Patient Limitations: No Limitations Time Seen by Provider: 02/22/23 18:05 Description of Symptoms (Recalled from Triage Doc. by RN): PATIENT C/O RED, BURNING SPOT TO LEFT SIDE OF MOUTH X 3 DAYS HEENT Symptoms (Recalled from RN notes): No Resp Symptoms (Recalled from RN notes): No Skin Symptoms (Recalled from RN notes): Yes MS Symptoms (Recalled from RN notes): No Functional Status (Recalled from RN notes): WNL History of Present Illness Provider Complaint: Patient states that she gets fever blisters sometimes and she typically takes Acylovir but she is out of it States that she had a place come up beside her left upper lip States that it stings and martin a little and she has been trying OTC fever blister medication but not helping much States that today it looked like it was spreading so she came in Related Data Home Medications Medication Instructions Recorded Confirmed spironolactone 100 mg tablet 100 mg PO DAILY Acne 04/17/21 02/22/23 lurasidone 60 mg tablet 60 mg PO DAILY Depression 02/22/23 02/22/23 Previous Rx's Medication Instructions Recorded valacyclovir 1 gram tablet 2,000 mg PO BID 1 day #4 tabs 02/22/23 Allergies Allergy/AdvReac Type Severity Reaction Status Date / Time No Known Allergies Allergy Verified 08/01/22 08:41 Worker's Comp Is this a Worker's Comp case?: No [facility] Disclaimer: The information contained in this section may have been updated after the patient was seen, as this information can be updated by other users. Medical History (Updated 02/22/23 @ 18:14 by Indu Mosley APRN) Anxiety Depression Surgical History (Updated 08/01/22 @ 08:42 by INDIA Milligan) Hx of section Hx of tonsillectomy Social History (Updated 08/01/22 @ 08:42 by INDIA Milligan) Smoking Status: Current every day smoker tobacco type: e-cigarettes second hand exposure: Yes alcohol intake: never current occupational status: employed Travel in the last 8 weeks: None housing: house ROS Obtained: Yes All systems reviewed & no additional complaints except as documented and Yes Systems reviewed as appropriate & no additional complaints except as documented Constitutional Constitutional: Reports system reviewed and no additional complaints, except as documented and Reports as per HPI ENT Ears, Nose, Mouth, and Throat: Reports system reviewed and no additional complaints, except as documented, Reports as per HPI and Reports other (large cold sore on left upper lip) Cardiovascular Cardiovascular: Reports system reviewed and no additional complaints, except as documented and Reports as per HPI Respiratory Respiratory: Reports system reviewed and no additional complaints, except as documented and Reports as per HPI Gastrointestinal Gastrointestingal: Reports system reviewed and no additional complaints, except as documented and as per HPI Physical Exam Gene
[2023-02-22 18:05] VITALS: BP 117/65; PULSE 89; RESP 20; TEMP 37; O2SAT 100
== END 2023-02-22 18:07 | disposition home or self-care (01) ==
PROVIDERS: Emergency Provider Nurse Practitioner
DX: B00.1 Herpesviral vesicular dermatitis (principal); F17.290 Nicotine dependence, other tobacco product, uncomplicated; F41.9 Anxiety disorder, unspecified; F32.A Depression, unspecified
CPT/HCPCS: 99212; 99213; G0463

== ENCOUNTER 2023-04-26 19:47 | Emergency (ER) | payer OTHER, SELFPAY ==
[2023-04-26 19:48] VITALS: BP 119/67; PULSE 119; RESP 20; TEMP 38.2; O2SAT 99; BMI 23.8
--- NOTE | 2023-04-26 19:59 | EXP.UTC ---
Discharge Plan Disposition Patient Disposition: Home, Self-Care Condition: Good Prescriptions Prescriptions: New azithromycin [Zithromax] 250 mg tablet 250 mg PO UD DOSE PK Qty: 6 0RF Rx Instructions: Take two (2) tablets today, then one (1) tablet days #2 thru #5 [id number]-[id number]-HN [Bromfed DM] 2-30-10 mg/5 mL Syrup 5 ml PO Q6H PRN (Reason: Cough) Qty: 240 0RF ondansetron 4 mg Tablet,Disintegrating 4 mg PO Q8H PRN (Reason: Nausea) Qty: 12 0RF No Action spironolactone 100 mg tablet 100 mg PO DAILY lurasidone 60 mg tablet 60 mg PO DAILY valacyclovir 1 gram tablet 2,000 mg PO BID 1 Days Qty: 4 0RF Referrals Follow up/Referrals: Jacy Mccartney APRN [Primary Care Provider] - See instructions Activity Restrictions/Add. Instructions Additional Instructions/Restrictions: Drink plenty of fluids. Take tylenol or ibuprofen for pain or fever. Take the medications as directed. Follow up with your regular doctor. GO TO THE ER FOR ANY WORSENING SYMPTOMS Clinical Impressions Clinical Impression: Acute viral syndrome, Sinusitis Instructions Patient Instructions: DI for Sinusitis, DI for Viral Syndrome Discharge ED Provider: Ko Rubi [facility] General Stated complaint: cough,sore throat,congestion Mode of Arrival: Ambulatory Source of Information: Patient Limitations: No Limitations Time Seen by Provider: 04/26/23 19:59 HEENT Symptoms (Recalled from RN notes): Yes Resp Symptoms (Recalled from RN notes): No Skin Symptoms (Recalled from RN notes): No MS Symptoms (Recalled from RN notes): No Functional Status (Recalled from RN notes): wnl History of Present Illness Provider Complaint: Patient reports fever, body aches, congestion and pain in her stomach that comes and goes for the past 1 day. Related Data Home Medications Medication Instructions Recorded Confirmed spironolactone 100 mg tablet 100 mg PO DAILY Acne 04/17/21 02/22/23 lurasidone 60 mg tablet 60 mg PO DAILY Depression 02/22/23 02/22/23 Previous Rx's Medication Instructions Recorded valacyclovir 1 gram tablet 2,000 mg PO BID 1 day #4 tabs 02/22/23 azithromycin 250 mg tablet 250 mg PO UD DOSE PK #6 tabs 04/26/23 (Zithromax) wwvbcrtniqzfdrd-nmbfhbsxfvwulgr-NX 5 ml PO Q6H PRN Cough #240 mL 04/26/23 2 mg-30 mg-10 mg/5 mL oral syrup (Bromfed DM) ondansetron 4 mg disintegrating 4 mg PO Q8H PRN Nausea #12 tabs 04/26/23 tablet Allergies Allergy/AdvReac Type Severity Reaction Status Date / Time No Known Allergies Allergy Verified 08/01/22 08:41 Worker's Comp Is this a Worker's Comp case?: No [facility] Disclaimer: The information contained in this section may have been updated after the patient was seen, as this information can be updated by other users. Medical History (Updated 04/26/23 @ 20:14 by Ko Rubi APRN) Anxiety Depression Surgical History Hx of section Hx of tonsillectomy Social History (Updated 08/01/22 @ 08:42 by INDIA Milligan) Smoking Status: Current every day smoker tobacco type: e-cigarettes second hand exposure: Yes alcohol intake: never current occupational status: employed Travel in the last 8 weeks: None housing: house ROS Obtained: Yes All systems reviewed & no additional complaints except as documented Constitutional Constitutional: Reports poor appetite Eyes Eyes: Reports system reviewed and no additional complaints, except as documented ENT Ears, Nose, Mouth, and Throat: Reports as per HPI Cardiovascular Cardiovascular: Reports system reviewed and no additional complaints, except as documented and Denies chest pain Respiratory Respiratory: Denies shortness of breath, Denies chest congestion, Reports cough, Denies stridor and Denies wheezing Gastrointestinal Gastrointestingal: Reports system reviewed and no additional complaints, except as
[2023-04-26 20:14] VITALS: BP 119/67; PULSE 119; RESP 20; TEMP 38.2; O2SAT 99
== END 2023-04-26 20:16 | disposition home or self-care (01) ==
PROVIDERS: Emergency Provider Nurse Practitioner Family; PCP Family Medicine Addiction Medicine
DX: J01.90 Acute sinusitis, unspecified (principal); R50.9 Fever, unspecified; B34.9 Viral infection, unspecified; F17.290 Nicotine dependence, other tobacco product, uncomplicated; F41.9 Anxiety disorder, unspecified; F32.A Depression, unspecified
CPT/HCPCS: 99212; 99214; G0463

== ENCOUNTER 2023-08-25 11:36 | Emergency (ER) | payer OTHER, SELFPAY ==
[2023-08-25 11:36] VITALS: BP 113/71; PULSE 84; RESP 16; TEMP 36.6; O2SAT 98; BMI 25.4
--- NOTE | 2023-08-25 11:52 | EXP.UTC ---
Discharge Plan Disposition Patient Disposition: Home, Self-Care Condition: Good Prescriptions Prescriptions: New azithromycin [Zithromax] 250 mg tablet 250 mg PO UD DOSE PK Qty: 6 0RF Rx Instructions: Take two (2) tablets today, then one (1) tablet days #2 thru #5 methylprednisolone 4 mg Tablets,Dose Pack 4 mg PO DIRECTED 6 Days Qty: 21 0RF Rx Instructions: Take 1 pack as directed for 6 days [id number]-vfwexaubn-PK [Bromfed DM] 2-30-10 mg/5 mL Syrup 5 ml PO Q6H PRN (Reason: Cough) Qty: 240 0RF No Action spironolactone 100 mg tablet 100 mg PO DAILY buspirone 5 mg tablet 5 mg PO DAILY Vraylar 1.5 mg capsule 1.5 mg PO DAILY Nexplanon 68 mg implant subdermal metronidazole 500 mg tablet 500 mg PO BID 7 Days Qty: 14 0RF Referrals Follow up/Referrals: Provider,Referral, MD [Primary Care Provider] - See instructions Activity Restrictions/Add. Instructions Additional Instructions/Restrictions: Drink plenty of fluids. Take tylenol or ibuprofen for pain or fever. Take the medications as directed. Follow up with your regular doctor. GO TO THE ER FOR ANY WORSENING SYMPTOMS Clinical Impressions Clinical Impression: Acute bronchitis Instructions Patient Instructions: Acute Bronchitis, DI for Bronchiolitis Discharge ED Provider: Ko Rubi [facility] HPI General Stated complaint: congestion, cough, lung pain Time Seen by Provider: 08/25/23 11:52 History of Present Illness Provider Complaint: She states that for the past 5 days she has had had worsen chest congestion, cough, sinus congestion, and malaise. Related Data Home Medications Medication Instructions Recorded Confirmed spironolactone 100 mg tablet 100 mg PO DAILY Acne 04/17/21 07/02/23 buspirone 5 mg tablet 5 mg PO DAILY 07/02/23 07/02/23 cariprazine 1.5 mg capsule 1.5 mg PO DAILY 07/02/23 07/02/23 (Vraylar) etonogestrel 68 mg subdermal subdermal 07/02/23 07/02/23 implant (Nexplanon) Previous Rx's Medication Instructions Recorded metronidazole 500 mg tablet 500 mg PO BID 7 days #14 tabs 07/06/23 azithromycin 250 mg tablet 250 mg PO UD DOSE PK #6 tabs 08/25/23 (Zithromax) peprrszwworbbme-ffiqapemzfxpikd-IT 5 ml PO Q6H PRN Cough #240 mL 08/25/23 2 mg-30 mg-10 mg/5 mL oral syrup (Bromfed DM) methylprednisolone 4 mg tablets in 4 mg PO DIRECTED 6 days #21 tabs 08/25/23 a dose pack Allergies Allergy/AdvReac Type Severity Reaction Status Date / Time No Known Allergies Allergy Verified 07/02/23 15:56 PFSH [facility] Disclaimer: The information contained in this section may have been updated after the patient was seen, as this information can be updated by other users. Medical History (Updated 08/25/23 @ 12:19 by Ko Rubi APRN) Anxiety Depression Vaginal odor Vaginitis Surgical History Hx of blepharoplasty Hx of section Hx of tonsillectomy Family History Other Cancer Diabetes FHx: mental illness Social History Smoking Status: Current every day smoker tobacco type: e-cigarettes second hand exposure: Yes alcohol intake: current current occupational status: employed Travel in the last 8 weeks: None housing: house ROS Obtained: Yes All systems reviewed & no additional complaints except as documented Constitutional Constitutional: Reports chills and Reports fever(s) Eyes Eyes: Denies eye discharge ENT Ears, Nose, Mouth, and Throat: Reports as per HPI Cardiovascular Cardiovascular: Denies chest pain Respiratory Respiratory: Denies chest congestion and Reports cough Gastrointestinal Gastrointestingal: Reports nausea; Denies abdominal pain, constipation, cramping, diarrhea or vomiting Musculoskeletal Musculoskeletal: Denies arthralgias Integumen
[2023-08-25 12:39] VITALS: BP 113/71; PULSE 84; RESP 16; TEMP 36.6; O2SAT 98
== END 2023-08-25 12:39 | disposition home or self-care (01) ==
PROVIDERS: Emergency Provider Nurse Practitioner Family
DX: J20.9 Acute bronchitis, unspecified (principal); R07.1 Chest pain on breathing; R05.8 Other specified cough; R50.9 Fever, unspecified; R09.89 Other specified symptoms and signs involving the circulatory and respiratory systems; R09.81 Nasal congestion; R53.81 Other malaise; F17.290 Nicotine dependence, other tobacco product, uncomplicated
CPT/HCPCS: 99212; 99214; G0463

== ENCOUNTER 2023-10-15 16:47 | Emergency (ER) | payer OTHER, SELFPAY ==
[2023-10-15 18:10] VITALS: BP 121/81; PULSE 75; RESP 18; TEMP 36.8; O2SAT 98; BMI 24.6
--- NOTE | 2023-10-15 18:26 | EXP.UTC ---
Discharge Plan Disposition Patient Disposition: Home, Self-Care Condition: Good Prescriptions Prescriptions: New amoxicillin [amoxicillin] 500 mg tablet 500 mg PO TID 10 Days Qty: 30 0RF [id number] [Bromfed DM] 2-30-10 mg/5 mL Syrup 5 ml PO Q6H PRN (Reason: Cough) Qty: 240 0RF No Action spironolactone 100 mg tablet 100 mg PO DAILY buspirone 5 mg tablet 5 mg PO DAILY Vraylar 1.5 mg capsule 1.5 mg PO DAILY Nexplanon 68 mg implant subdermal Referrals Follow up/Referrals: Provider,Referral, MD [Primary Care Provider] - See instructions Activity Restrictions/Add. Instructions Additional Instructions/Restrictions: Drink plenty of fluids. Take tylenol or ibuprofen for pain or fever. Take the medications as directed. Follow up with your regular doctor. GO TO THE ER FOR ANY WORSENING SYMPTOMS Throw your tooth brush away and get a new one. Clinical Impressions Clinical Impression: Strep throat Instructions Patient Instructions: Strep Throat, DI for Strep Throat Discharge ED Provider: Ko Rubi [facility] General Stated complaint: wek,vomiting,abd pain, ROJO Mode of Arrival: Ambulatory Source of Information: Patient Limitations: No Limitations Time Seen by Provider: 10/15/23 18:10 Description of Symptoms (Recalled from Triage Doc. by RN): PATIENT C/O HEADACHE, STOMACH ACHE, VOMITING, FATIGUE, AND DIZZINESS X 3-4 DAYS HEENT Symptoms (Recalled from RN notes): Yes Resp Symptoms (Recalled from RN notes): No Skin Symptoms (Recalled from RN notes): No MS Symptoms (Recalled from RN notes): No Functional Status (Recalled from RN notes): WNL Related Data Home Medications Medication Instructions Recorded Confirmed spironolactone 100 mg tablet 100 mg PO DAILY Acne 04/17/21 09/10/23 buspirone 5 mg tablet 5 mg PO DAILY 07/02/23 09/10/23 cariprazine 1.5 mg capsule 1.5 mg PO DAILY 07/02/23 09/10/23 (Vraylar) etonogestrel 68 mg subdermal subdermal 07/02/23 09/10/23 implant (Nexplanon) Previous Rx's Medication Instructions Recorded amoxicillin 500 mg tablet 500 mg PO TID 10 days #30 tabs 10/15/23 rofkbbsdhbzcrpz-owotgogythhuypx-HY 5 ml PO Q6H PRN Cough #240 mL 10/15/23 2 mg-30 mg-10 mg/5 mL oral syrup (Bromfed DM) Allergies Allergy/AdvReac Type Severity Reaction Status Date / Time No Known Allergies Allergy Verified 09/10/23 11:18 Worker's Comp Is this a Worker's Comp case?: No [facility] Disclaimer: The information contained in this section may have been updated after the patient was seen, as this information can be updated by other users. Medical History Anxiety Depression Vaginal odor Vaginitis Surgical History Hx of blepharoplasty Hx of section Hx of tonsillectomy Family History Other Cancer Diabetes FHx: mental illness Social History Smoking Status: Current every day smoker tobacco type: e-cigarettes second hand exposure: Yes alcohol intake: current current occupational status: employed Travel in the last 8 weeks: None housing: house ROS Obtained: Yes All systems reviewed & no additional complaints except as documented Constitutional Constitutional: Reports chills and Reports fever(s) Eyes Eyes: Denies eye discharge ENT Ears, Nose, Mouth, and Throat: Reports as per HPI Cardiovascular Cardiovascular: Denies chest pain Respiratory Respiratory: Denies chest congestion and Reports cough Gastrointestinal Gastrointestingal: Reports nausea; Denies abdominal pain, constipation, cramping, diarrhea or vomiting Musculoskeletal Musculoskeletal: Denies arthralgias Integumentary/Breasts Skin/Breast: Denies rash Neurologic Neurologic: Denies paresthesias Physical Exam General General appearance: alert and in no apparent distress Head Head exam: atraumatic, normocephalic and normal inspection Eye Eye exam: Present normal appearance, PERRL and EOMI ENT ENT exam: Present mucous membranes moist and normal external ear exam Expanded ENT Exam TM/Canal exam: Bilateral TM: erythema and bulging Nose exam: Absent sinus tenderness Mouth exam: Present normal external inspection; Absent drooling Teeth exam: Present normal inspection Throat exam: Present tonsillar erythema, tonsillomegaly and tonsillar exudate Neck Neck exam: Present normal inspection, full ROM and trachea midline; Absent tenderness, meningismus or lymphadenopathy Chest Chest inspection: Present normal inspection and symmetric chest wall rise; Absent tenderness Respiratory Respiratory exam: Present normal lung sounds bilaterally; Absent respiratory distress, wheezes or stridor Cardiovascular Cardiovascular exam: Present regular rate and normal rhythm; Absent systolic murmur or diastolic murmur Abdominal Exam Abdominal exam: Present soft and normal bowel sounds; Absent distention, tenderness, guarding, rebound or rigidity Extremities Exam Extremities exam: Present normal inspection and normal capillary refill; Absent calf tenderness Back Exam Back exam: Present normal inspection and full ROM; Absent tenderness, CVA tenderness (R) or CVA tenderness (L) Neurological Exam Neurological exam: Present alert, oriented X3 and CN II-XII intact Psychiatric Psychiatric exam: Present normal affect and normal mood Skin Skin exam: Present warm, dry, intact and normal color Medical Decision Making Medical Records Medical records reviewed: No I reviewed the patient's medical records. Parish Inquiry Pt receiving controlled substance: No Vital Signs: 10/15/23 18:10 Temperature 98.3 F Temperature Source Oral Pulse Rate [Right Brachial] 75 Respiratory Rate 18 Blood Pressure [Right Arm] 121/81 Blood Pressure Mean [Right Arm] 94 Blood Pressure Source [Right Arm] Automatic Cuff Blood Pressure Position [Right Arm] Sitting 02 Sat by Pulse Oximetry 98 Oxygen Delivery Method Room Air Lab Data Lab results reviewed: Yes I reviewed the patient's lab results.
[2023-10-15 18:40] LABS: UTC Strep Screen (Rapid) Positive (Negative)
[2023-10-15 18:46] VITALS: BP 121/81; PULSE 75; RESP 18; TEMP 36.8; O2SAT 98
== END 2023-10-15 19:25 | disposition home or self-care (01) ==
PROVIDERS: Emergency Provider Nurse Practitioner Family
DX: J02.0 Streptococcal pharyngitis (principal); R07.0 Pain in throat; R11.2 Nausea with vomiting, unspecified; R51.9 Headache, unspecified; R53.83 Other fatigue; F17.290 Nicotine dependence, other tobacco product, uncomplicated
CPT/HCPCS: 87880; 99212; 99214; G0463

== ENCOUNTER 2023-10-24 19:43 | Emergency (ER) | payer OTHER, SELFPAY ==
[2023-10-24 19:50] VITALS: BP 104/60; PULSE 89; RESP 18; TEMP 36.9; O2SAT 100; BMI 24.5
[2023-10-24 19:54] LABS: Coronavirus 19, PCR Not Detected (NotDetected); Influenza A, PCR Not Detected (NotDetected); Influenza B, PCR Not Detected (NotDetected)
[2023-10-24] MEDS: ONDANSETRON 4MG ODT 4 MG SL (20:20)
--- NOTE | 2023-10-24 20:37 | HMH.EDGENADL ---
Discharge Plan Disposition Patient Disposition: Home, Self-Care Prescriptions Prescriptions: New prednisone 20 mg tablet 40 mg PO DAILY 5 Days Qty: 10 0RF ondansetron 4 mg tablet,disintegrating 4 mg PO Q6H PRN (Reason: nausea and vomiting) Qty: 10 0RF No Action buspirone 5 mg tablet 5 mg PO DAILY buspirone 5 mg tablet 5 mg PO DAILY hydroxyzine pamoate 25 mg capsule 25 mg PO DAILY Vraylar 3 mg capsule 3 mg PO DAILY Referrals Follow up/Referrals: Provider,Referral, MD [Primary Care Provider] - See instructions Activity Restrictions/Add. Instructions Additional Instructions/Restrictions: Call your family doctor to establish care for this visit to the emergency department and schedule follow-up within 48 hours to ensure improvement. If you have any worsening of your condition or any other concerning signs or symptoms, return to the emergency department or your primary care doctor for further evaluation. Clinical Impressions Clinical Impression: Acute viral syndrome Discharge ED Provider: Trace Schreiber General Adult HPI General Chief complaint: Upper Respiratory Infection Stated complaint: kirk,fever, body aches,cough Time Seen by Provider: 10/24/23 19:49 Mode of Arrival: Ambulatory Source of Information: Patient Limitations: No Limitations Description of Symptoms (Recalled from ER Triage Doc. by RN): 28 year old with complaints of fever, chills, body aches and cough since this morning. Patient states she took ibuprofen an hour and half ago History of Present Illness HPI narrative: 28-year-old female with no relevant medical history presenting with multiple. Patient states that today, 10/24, she woke up with fever, chills, body aches, cough. Cough is nonproductive. She has been taking ibuprofen, does not feel that it helped. Has not measured any objective fevers. Has had 1 episode of nonbloody, nonbilious vomiting. No diarrhea or urinary symptoms. Just ended strep pharyngitis treatment a couple days prior to this visit. She has a sick contact who has the flu Related Data Home Medications Medication Instructions Recorded Confirmed buspirone 5 mg tablet 5 mg PO DAILY 07/02/23 10/24/23 buspirone 5 mg tablet 5 mg PO DAILY 10/24/23 10/24/23 cariprazine 3 mg capsule (Vraylar) 3 mg PO DAILY 10/24/23 10/24/23 hydroxyzine pamoate 25 mg capsule 25 mg PO DAILY 10/24/23 10/24/23 Previous Rx's Medication Instructions Recorded ondansetron 4 mg disintegrating 4 mg PO Q6H PRN nausea and 10/24/23 tablet vomiting #10 tabs prednisone 20 mg tablet 40 mg PO DAILY 5 days #10 tabs 10/24/23 Allergies Allergy/AdvReac Type Severity Reaction Status Date / Time No Known Allergies Allergy Verified 09/10/23 11:18 [facility] Disclaimer: The information contained in this section may have been updated after the patient was seen, as this information can be updated by other users. Medical History Anxiety Depression Vaginal odor Vaginitis Surgical History Hx of blepharoplasty Hx of section Hx of tonsillectomy Family History Other Cancer Diabetes FHx: mental illness Social History Smoking Status: Current every day smoker tobacco type: e-cigarettes second hand exposure: Yes alcohol intake: current current occupational status: employed Travel in the last 8 weeks: None housing: house ROS Obtained: Yes All systems reviewed & no additional complaints except as documented Physical Exam General General appearance: alert and in no apparent distress Head Head exam: atraumatic and normocephalic Eye Eye exam: Present normal appearance, PERRL and EOMI ENT ENT exam: Present mucous membranes moist Neck Neck exam: Present normal inspection, full ROM and trachea midline Respiratory Respiratory exam: Present normal lung sounds bilaterally; Absent respiratory distress, wheezes, stridor, accessory muscle use or prolonged expiratory phase Cardiovascular Cardiovascular exam: Present regular rate and normal rhythm Abdominal Exam Abdominal exam: Present soft; Absent distention, tenderness, guarding, rebound or rigidity Extremities Exam Extremities exam: Absent edema Neurological Exam Neurological exam: Present alert, oriented X3, CN II-XII intact and normal gait; Absent motor sensory deficit Skin Skin exam: Present warm and dry; Absent diaphoresis or erythema Medical Decision Making Medical Records Medical records reviewed: Yes I reviewed the patient's medical records. Parish Inquiry Pt receiving controlled substance: No Parish was queried for this patient: No Vital Signs: 10/24/23 19:50 Temperature 98.4 F Temperature Source Oral Pulse Rate [Left Radial] 89 Respiratory Rate 18 Blood Pressure [Right Arm] 104/60 L Blood Pressure Mean [Right Arm] 74 02 Sat by Pulse Oximetry 100 Oxygen Delivery Method Room Air Lab Data Lab Results 10/24/23 19:50: SARS-CoV-2 (PCR) Not detected, Influenza A Untype (PCR) Not detected, Influenza Type B (PCR) Not detected Orders (Tests/Meds): ED MEDICATIONS Discontinued Medications Generic Name Dose Route Start Last Admin Trade Name Lexxq PRN Reason Stop Dose Admin Ondansetron HCl 4 mg 10/24/23 20:17 10/24/23 20:20 Ondansetron 4mg Odt SL 10/24/23 20:18 4 mg ONCE ONE Administration ORDERS Category Date Time Status Rapid PCR Covid and Flu A/B Stat Lab 10/24/23 19:50 Completed Medical Decision Narrative: 28-year-old female with no relevant medical history presenting with multiple. Patient states that today, 10/24, she woke up with fever, chills, body aches, cough. Cough is nonproductive. She has been taking ibuprofen, does not feel that it helped. Has not measured any objective fevers. Has had 1 episode of nonbloody, nonbilious vomiting. No diarrhea or urinary symptoms. Just ended strep pharyngitis treatment a couple days prior to this visit. She has a sick contact who has the flu. History was obtained via conversation with patient. On arrival, patient hemodynamically stable, alert, oriented x4, appropriate, GCS 15, moving all extremities spontaneously, pupils equal and reactive to light. Full physical exam performed and significant for well-appearing woman in no acute distress. Lungs are clear to auscultation, nontachycardic, normotensive. Afebrile and overall unremarkable physical exam. Differential includes acute viral syndrome, endocrinologic, vasculitis, among others. Patient was given Decadron p.o. for symptomatic management and correction of underlying abnormalities. Workup independently interpreted and significant for negative COVID/flu swab. Given patient presentation, workup, history, this most likely represents acute viral syndrome. This could likely represent false negative influenza swab given symptoms just started today, 10/24. Conversation was had with patient regarding Tamiflu versus steroid, she opted for steroid. Because patient at baseline without signs or symptoms of clinical decompensation, deemed appropriate for discharge. Results were relayed to patient who voiced understanding and were agreeable to outpatient management and follow up. At the time of discharge the patient was hemodynamically stable, tolerating PO, and mobilizing appropriately. Critical Care Critical Care Time Critical Care Time: No
[2023-10-24 20:47] VITALS: BP 107/59; PULSE 80; RESP 18; TEMP 36.7; O2SAT 100
== END 2023-10-24 20:48 | disposition home or self-care (01) ==
PROVIDERS: Emergency Provider Emergency Medicine
DX: R50.9 Fever, unspecified (principal); R05.9 Cough, unspecified; R11.10 Vomiting, unspecified; B34.9 Viral infection, unspecified; F17.290 Nicotine dependence, other tobacco product, uncomplicated
CPT/HCPCS: 87636; 99283

== ENCOUNTER 2024-02-07 16:57 | Emergency (ER) | payer BC, SELFPAY ==
[2024-02-07 16:59] VITALS: BP 121/68; PULSE 94; RESP 13; O2SAT 100; BMI 24.0
--- NOTE | 2024-02-07 17:01 | ED_ITS ---
<Statement entered by Janice Holloway DO - 02/07/24 19:29> I was consulted by the ANA, and we discussed the complexity of the problems being addressed. I approved the treatment and management plan for this patient's care in the emergency department, thus performing a substantive portion of the medical decision making. CT read possible cholecystitis, but clinical exam not concerning for cholecystitis at this time. Lab evaluation normal. Patient already has close follow-up arranged for chronic abdominal pain. Strict return precautions were given. Janice Holloway DO Discharge Plan Disposition Patient Disposition: Home, Self-Care Condition: Good Prescriptions Prescriptions: New ondansetron 4 mg tablet,disintegrating 4 mg PO Q6H PRN (Reason: nausea and vomiting) Qty: 10 0RF pantoprazole [Protonix] 40 mg tablet,delayed release (DR/EC) 40 mg PO HS 42 Days Qty: 42 0RF No Action Mirena 21 mcg/24 hours (8 yrs) 52 mg intrauterine device 1 device intrauterine buspirone 5 mg tablet 5 mg PO DAILY hydroxyzine pamoate 25 mg capsule 25 mg PO DAILY Vraylar 3 mg capsule 3 mg PO DAILY prednisone 20 mg tablet 40 mg PO DAILY 5 Days Qty: 10 0RF Referrals Follow up/Referrals: Jose Enrique Majano MD [Primary Care Provider] - See instructions Activity Restrictions/Add. Instructions Additional Instructions/Restrictions: Please follow-up with your PCP to schedule an EGD. Return to ER as needed for any worsening signs or symptoms as needed Clinical Impressions Clinical Impression: Abdominal pain, acute Nausea & vomiting Qualifiers: Vomiting type: unspecified Qualified Code(s): R11.2 - Nausea with vomiting, unspecified Instructions Patient Instructions: DI for Acute Abdominal Pain Discharge ED Provider: Janice Holloway General Adult HPI General Chief complaint: Abdominal Pain Stated complaint: Stomach,backpain,light headed,vomiting Time Seen by Provider: 02/07/24 17:00 Related Data Home Medications Medication Instructions Recorded Confirmed buspirone 5 mg tablet 5 mg PO DAILY 10/24/23 10/29/23 cariprazine 3 mg capsule (Vraylar) 3 mg PO DAILY 10/24/23 10/29/23 hydroxyzine pamoate 25 mg capsule 25 mg PO DAILY 10/24/23 10/29/23 levonorgestrel 21 mcg/24 hr (up to 1 device intrauterine 10/29/23 10/29/23 8 years) 52 mg intrauterine device (Mirena) Previous Rx's Medication Instructions Recorded prednisone 20 mg tablet 40 mg (2 x 20 mg) PO DAILY 5 days 10/24/23 #10 tabs ondansetron 4 mg disintegrating 4 mg PO Q6H PRN nausea and 02/07/24 tablet vomiting #10 tabs pantoprazole 40 mg tablet,delayed 40 mg PO HS 6 weeks #42 tabs 02/07/24 release (Protonix) Allergies Allergy/AdvReac Type Severity Reaction Status Date / Time No Known Allergies Allergy Verified 10/29/23 13:09 [facility] Disclaimer: The information contained in this section may have been updated after the patient was seen, as this information can be updated by other users. Medical History Anxiety Depression Vaginal odor Vaginitis Surgical History Hx of blepharoplasty Hx of section Hx of tonsillectomy Family History Other Cancer Diabetes FHx: mental illness Social History Smoking Status: Current every day smoker tobacco type: e-cigarettes second hand exposure: Yes alcohol intake: current alcohol intake frequency: holidays/special occasions only current occupational status: employed Travel in the last 8 weeks: None housing: house ROS Obtained: Yes Systems reviewed as appropriate & no additional complaints except as documented Physical Exam General General appearance: alert and in no apparent distress Head Head exam: atraumatic and normal inspection Eye Eye exam: Present normal appearance, PERRL and EOMI ENT ENT exam: Present normal exam, normal oropharynx and mucous membranes moist Neck Neck exam: Present normal inspection, full ROM and trachea midline; Absent lymphadenopathy Chest Chest inspection: Present normal inspection and symmetric chest wall rise Respiratory Respiratory exam: Present normal lung sounds bilaterally; Absent accessory muscle use Cardiovascular Cardiovascular exam: Present regular rate, normal rhythm, normal heart sounds, +S1 and +S2 Abdominal Exam Abdominal exam: Present soft and normal bowel sounds; Absent tenderness, guarding or rebound Extremities Exam Extremities exam: Present normal inspection and full ROM Neurological Exam Neurological exam: Present alert, oriented X3 and CN II-XII intact Psychiatric Psychiatric exam: Present normal affect and normal mood Skin Skin exam: Present warm, dry and normal color Lymphatic Lymphatic Findings: no adenopathy Medical Decision Making Medical Records Medical records reviewed: Yes I reviewed the patient's medical records. Parish Inquiry Pt receiving controlled substance: No Vital Signs: 02/07/24 16:59 02/07/24 17:05 02/07/24 17:30 Temperature Pulse Rate 84 76 Pulse Rate [Left Radial] 94 H Respiratory Rate 13 Blood Pressure 121/68 106/75 L Blood Pressure [Right Arm] 121/68 Blood Pressure Mean [Right Arm] 85 02 Sat by Pulse Oximetry 100 100 100 Oxygen Delivery Method Room Air Room Air Room Air 02/07/24 18:00 02/07/24 18:41 02/07/24 19:09 Temperature 98.2 F Pulse Rate 58 L 70 59 L Pulse Rate [Left Radial] Respiratory Rate 16 Blood Pressure 99/60 L 95/58 L 98/67 L Blood Pressure [Right Arm] Blood Pressure Mean [Right Arm] 02 Sat by Pulse Oximetry 99 100 Oxygen Delivery Method Room Air Lab Data Lab results reviewed: Yes I reviewed the patient's lab results. Lab Results 02/07/24 17:24: WBC 8.5, RBC 4.59, Hgb 14.0, Hct 43.0, MCV 93.7, MCH 30.5, MCHC 32.6, RDW 13.3, Plt Count 202, MPV 8.8, Neut % (Auto) 64.3, Lymph % (Auto) 27.5, [place] % (Auto) 5.9, Eos % (Auto) 1.3, Baso % (Auto) 1.1, Neut # (Auto) 5.5, Lymph # (Auto) 2.3, [place] # (Auto) 0.5, Eos # (Auto) 0.1, Baso # (Auto) 0.1, PT 11.3, INR 1.05, Sodium 139, Potassium 3.9, Chloride 104, Carbon Dioxide 25, Anion Gap 13.9, BUN 11, Creatinine 0.90, Estimated Creat Clear 85, Estimated GFR 75, Est GFR ( Amer) 90, Glucose 99, Calcium 9.9, Magnesium 2.1, Total Bilirubin 0.4, AST 28, ALT 23, Alkaline Phosphatase 49, Total Protein 7.8, Albumin 4.8, Globulin 3.0, Albumin/Globulin Ratio 1.6, Lipase 141, Serum HCG, Qual Negative 02/07/24 17:24 02/07/24 17:24 Orders (Tests/Meds): ED MEDICATIONS Discontinued Medications Generic Name Dose Route Start Last Admin Trade Name Dalia PRN Reason Stop Dose Admin Acetaminophen 1,000 mg 02/07/24 17:13 02/07/24 17:30 Acetaminophen 1,000mg/100ml Vial IV 02/07/24 17:14 1,000 mg ONCE ONE Administration Belladonna Alkaloids 60 ml 02/07/24 17:13 02/07/24 17:29 Belladonna Alkaloids 60 Ml Ml PO 02/07/24 17:14 60 ml ONCE ONE Administration Lactated Ringer's 1,000 mls @ 999 mls/hr 02/07/24 17:13 02/07/24 17:30 Lactated Ringer's 1000 Ml Bag IV 02/07/24 18:13 999 mls/hr .Q1H1M ONE Administration Iopamidol 75 ml 02/07/24 18:13 02/07/24 18:14 Iopamidol-370 (76%);100ml Bottle IV 02/07/24 18:14 75 ml ONCE ONE Administration Ketorolac Tromethamine 15 mg 02/07/24 17:13 02/07/24 17:29 Ketorolac 30mg/Ml Vial IV 02/07/24 17:14 15 mg ONCE ONE Administration Sodium Chloride 10 ml 02/07/24 18:13 02/07/24 18:14 Sodium Chloride 0.9% 10ml Syr (Rad Only) IV 02/07/24 18:14 10 ml ONCE ONE Administration ORDERS Category Date Time Status CT abdomen pelvis w con Stat Cat Scan 02/07/24 17:13 Completed CBC w/Auto Diff [Complete Blood Count Auto Diff] Stat Lab 02/07/24 17:24 Completed CMP [Comprehensive Metabolic Panel] Stat Lab 02/07/24 17:24 Completed HCG Qualitative, Serum Stat Lab 02/07/24 17:24 Completed INR [Prothrombin Time INR] Stat Lab 02/07/24 17:24 Completed Lipase Stat Lab 02/07/24 17:24 Completed Magnesium Stat Lab 02/07/24 17:24 Completed Medical Decision Narrative: In summary patient is a 28-year-old female who presents to the emergency department for evaluation of chemo pain and vomiting. Patient is hemodynamically stable upon arrival, afebrile. Physical exam is remarkable for tenderness to palpation in the right upper quadrant and epigastrium with no rebound or guarding or rigidity. And normal bowel sounds. The remainder physical exam is unremarkable and nonfocal. Differential diagnosis includes gastritis versus ulcer disease versus pancreatitis versus cholelithiasis versus biliary colic versus acute cholecystitis etc. Initial workup will be conducted with hematologic labs CT scan abdomen pelvis. Initial interventions include crystalloid bolus GI cocktail Toradol Tylenol Zofran. Initial workup reviewed by me shows that her hematologic labs are nonactionable and my informal interpretation of her CT scan abdomen pelvis shows. Upon repeat evaluation patient reports significant improvement in her discomfort after initial interventions. Given this patient is appropriate for discharge with a prescription for proton pump inhibitor and antiemetic with recommendations to asked PCP to schedule upper endoscopy. Critical Care Critical Care Time Critical Care Time: No
[2024-02-07 17:05] VITALS: BP 121/68; PULSE 84; O2SAT 100
--- NOTE | 2024-02-07 17:13 | CT_ITS ---
PROCEDURE INFORMATION: Exam: CT Abdomen And Pelvis With Contrast Exam date and time: 02/07/2024 6:13 PM Age: 28 years old Clinical indication: Abdominal pain; Additional info: Abdominal pain, nausea vomiting TECHNIQUE: Imaging protocol: Computed tomography of the abdomen and pelvis with contrast. Radiation optimization: All CT scans at this facility use at least one of these dose optimization techniques: automated exposure control; mA and/or kV adjustment per patient size (includes targeted exams where dose is matched to clinical indication); or iterative reconstruction. Contrast material: ISOVUE; Contrast volume: 75 ml; Contrast route: IV; COMPARISON: CT ABDOMEN PELVIS W CON 04/03/2022 10:12 PM FINDINGS: Liver: Normal. No mass. Gallbladder and bile ducts: Mild gallbladder wall thickening. No calcified stones. No ductal dilation. Pancreas: Normal. No ductal dilation. Spleen: Calcified granulomas. No splenomegaly. Adrenal glands: Normal. No mass. Kidneys and ureters: Normal. No hydronephrosis. Stomach and bowel: Unremarkable. No obstruction. No mucosal thickening. Appendix: No evidence of appendicitis. Intraperitoneal space: Minimal free fluid within the pelvis. No free air. Vasculature: Unremarkable. No abdominal aortic aneurysm. Lymph nodes: Unremarkable. No enlarged lymph nodes. Urinary bladder: Unremarkable as visualized. Reproductive: Intrauterine device projects centrally within the uterus. 1.6 cm left corpus luteal cyst. Bones/joints: Unremarkable. No acute fracture. Soft tissues: Unremarkable. IMPRESSION: Mild gallbladder wall thickening, nonspecific finding, although may represent acute cholecystitis. No calcified gallstones.
[2024-02-07] MEDS: BELLADONNA ALKALOIDS 60 ML ML PO (17:29)
[2024-02-07] MEDS: KETOROLAC 30MG/ML VIAL 15 MG IV (17:29)
[2024-02-07 17:30] VITALS: BP 106/75; PULSE 76; O2SAT 100
[2024-02-07] MEDS: ACETAMINOPHEN 1,000MG/100ML VIAL 1000 MG IV (17:30)
[2024-02-07] MEDS: LACTATED RINGERS 1000ML 1,000 ML 999 ML IV (17:30)
[2024-02-07 17:31] LABS: Basophils # 0.1 K/mm3 (0-0.2); Basophils % 1.1 % (0.1-2.0); Eosinophils # 0.1 K/mm3 (0.0-0.4); Eosinophils % 1.3 % (0.1-12.0); Lymphocytes # 2.3 K/mm3 (0.7-4.5); Lymphocytes % 27.5 % (10-50); Mean Corpuscular HGB Conc 32.6 g/dL (31.8-35.4); Mean Corpuscular Hemoglobin 30.5 pg (27.0-31.2); Mean Corpuscular Volume 93.7 fl (81-99); Mean Platelet Volume 8.8 fl (7.4-10.4); Monocytes # 0.5 K/mm3 (0.1-1.0); Monocytes % 5.9 % (1.7-9.3); Neutrophils # 5.5 K/mm3 (1.8-7.8); Neutrophils % 64.3 % (37.0-80.0); Platelet Count 202 K/mm3 (142-424); Red Blood Count 4.59 M/mm3 (4.20-5.40); Red Cell Distribution Width 13.3 % (11.5-17.5); White Blood Count 8.5 K/mm3 (4.8-10.8)
[2024-02-07 17:37] LABS: Chloride 104 mmol/L (98-107)
[2024-02-07 17:38] LABS: Potassium 3.9 mmoL/L (3.5-5.1); Sodium 139 mmol/L (136-145)
[2024-02-07 17:40] LABS: Alanine Aminotransferase 23 U/L (12-78); Alkaline Phosphatase 49 U/L (38-126); Anion Gap 13.9 mEq/L (5-15); Aspartate Amino Transferase 28 U/L (14-36); Bilirubin,Total 0.4 mg/dl (0.2-1.3); Blood Urea Nitrogen 11 mg/dl (7-17); Calcium 9.9 mg/dl (8.4-10.2); Carbon Dioxide 25 mmol/L (22.0-30.0); Creatinine Clearance Estimated 85 mL/min (50-200); Estimated Glomerular Filt Rate 75 ml/min (>60); GFR (African American) 90 ML/MIN (>60); Glucose 99 mg/dl (74-100); Lipase 141 U/L (23-300)
[2024-02-07 17:41] LABS: Albumin Level 4.8 g/dl (3.5-5.0); Albumin/Globulin Ratio 1.6 (1.1-1.8); Magnesium 2.1 mg/dl (1.6-2.3); Total Protein,Serum 7.8 g/dl (6.3-8.2)
[2024-02-07 17:56] LABS: HCG Qualitative, Serum Negative (Negative)
[2024-02-07 17:59] LABS: INR 1.05 (0.9-1.1); Prothrombin Time 11.3 seconds (10.1-12.5)
[2024-02-07 18:00] VITALS: BP 99/60; PULSE 58; O2SAT 99
[2024-02-07] MEDS: SODIUM CHLORIDE 0.9% 10ML SYR (RAD ONLY) 10 ML IV (18:14)
[2024-02-07] MEDS: IOPAMIDOL-370 (76%);100ML BOTTLE 75 ML IV (18:14)
[2024-02-07 18:41] VITALS: BP 95/58; PULSE 70; O2SAT 100
[2024-02-07 19:09] VITALS: BP 98/67; PULSE 59; RESP 16; TEMP 36.8; O2SAT 100
== END 2024-02-07 19:04 | disposition home or self-care (01) ==
PROVIDERS: Physician Assistant; Emergency Provider Emergency Medicine; PCP Family Medicine
DX: R10.13 Epigastric pain (principal); R11.2 Nausea with vomiting, unspecified; F17.290 Nicotine dependence, other tobacco product, uncomplicated
CPT/HCPCS: 74177; 80053; 83690; 83735; 84703; 85025; 85610; 96361; 96374; 96375; 99284; J0131; J1885; J7120; Q9967

== ENCOUNTER 2024-02-10 08:17 | Outpatient (CLI) | payer OTHER, SELFPAY ==
--- NOTE | 2024-02-10 08:27 | US_ITS ---
FINAL REPORT CLINICAL HISTORY: URINARY FREQUENCY,FATIGUE,VOMITING,NAUSEA,ABD PAIN COMPARISON: CT abdomen pelvis 02/07/2024 FINDINGS: Sonographic images of the abdomen were obtained. The liver has an unremarkable appearance with normal echogenicity. Gallstones are noted in the gallbladder. There is no evidence of biliary ductal dilatation. The common hepatic duct measures 3 mm, which is within normal limits. The pancreas is partially obscured. The spleen size is normal. The right kidney measures 8.7 cm in length. The left kidney measures 9.9 cm in length. There is a 9 mm hypoechoic focus in the upper pole of the left kidney which is not definitely a cyst. No mass was seen on CT scan from the prior day and this is favored to be artifactual. There is no evidence of hydronephrosis. The aorta has an unremarkable appearance. Limited images of the inferior vena cava are unremarkable. IMPRESSION: Gallstones. Reviewed, Interpreted and Dictated by Danny Bashir III, MD Transcribed by Tracy Villanueva Authenticated and [facility]
== END 2024-02-10 23:59 | disposition home or self-care (01) ==
LOC: RAD 08:17
PROVIDERS: PCP Nurse Practitioner; Visit Provider Nurse Practitioner
DX: R35.0 Frequency of micturition (principal); R53.83 Other fatigue; R10.9 Unspecified abdominal pain; R11.2 Nausea with vomiting, unspecified
CPT/HCPCS: 76700

== ENCOUNTER 2024-03-18 12:04 | Outpatient (CLI) | payer OTHER, SELFPAY ==
[2024-03-18 12:40] LABS: Urine Pregnancy, HCG Qual. Negative (Negative)
[2024-03-18 12:50] LABS: Basophils # 0.1 K/mm3 (0-0.2); Basophils % 0.8 % (0.1-2.0); Eosinophils # 0.1 K/mm3 (0.0-0.4); Eosinophils % 1.1 % (0.1-12.0); Hematocrit 33.8 % (37.0-47.0); Hemoglobin 13.5 g/dL (12.2-16.2); Lymphocytes # 1.9 K/mm3 (0.7-4.5); Lymphocytes % 27.7 % (10-50); Mean Corpuscular HGB Conc 39.9 g/dL (31.8-35.4); Mean Corpuscular Hemoglobin 37.2 pg (27.0-31.2); Mean Corpuscular Volume 93.4 fl (81-99); Mean Platelet Volume 9.2 fl (7.4-10.4); Monocytes # 0.3 K/mm3 (0.1-1.0); Monocytes % 4.8 % (1.7-9.3); Neutrophils # 4.6 K/mm3 (1.8-7.8); Neutrophils % 65.6 % (37.0-80.0); Platelet Count 173 K/mm3 (142-424); Red Blood Count 3.62 M/mm3 (4.20-5.40); Red Cell Distribution Width 13.6 % (11.5-17.5)
[2024-03-18 13:03] LABS: Chloride 107 mmol/L (98-107)
[2024-03-18 13:04] LABS: Sodium 140 mmol/L (136-145)
[2024-03-18 13:06] LABS: Alanine Aminotransferase 17 U/L (12-78); Alkaline Phosphatase 49 U/L (38-126); Aspartate Amino Transferase 20 U/L (14-36); Bilirubin,Total 0.2 mg/dl (0.2-1.3); Blood Urea Nitrogen 10 mg/dl (7-17); Estimated Glomerular Filt Rate 85 ml/min (>60); GFR (African American) 103 ML/MIN (>60)
[2024-03-18 13:07] LABS: Albumin Level 4.1 g/dl (3.5-5.0); Albumin/Globulin Ratio 1.5 (1.1-1.8); Calcium 9.1 mg/dl (8.4-10.2); Carbon Dioxide 28 mmol/L (22.0-30.0); Globulin 2.7 g/dL (1.3-3.2); Glucose 94 mg/dl (74-100); Total Protein,Serum 6.8 g/dl (6.3-8.2)
== END 2024-03-18 23:59 | disposition home or self-care (01) ==
PROVIDERS: Surgery; PCP Nurse Practitioner
DX: R10.9 Unspecified abdominal pain (principal)
CPT/HCPCS: 36415; 80053; 81025; 85025

== ENCOUNTER 2024-03-21 07:43 | Day surgery (SDC) | payer OTHER, SELFPAY ==
[2024-03-18 09:02] VITALS: BMI 23.6
[2024-03-21] VITALS (12 sets, daily range): BP systolic 91–115; BP diastolic 51–63; PULSE 61–105; RESP 14–18; TEMP 36.6–43; O2SAT 92–100
[2024-03-21] MEDS: LACTATED RINGERS 1000ML 1,000 ML 25 ML IV (08:01)
--- NOTE | 2024-03-21 08:16 | P.PNANES_ITS ---
[facility] Disclaimer: The information contained in this section may have been updated after the patient was seen, as this information can be updated by other users. Medical History Vaginitis Vaginal odor Anxiety Depression Surgical History Hx of blepharoplasty Hx of tonsillectomy Hx of section Family History Other Cancer Diabetes FHx: mental illness Social History Smoking Status: Current every day smoker tobacco type: e-cigarettes second hand exposure: Yes alcohol intake: current alcohol intake frequency: holidays/special occasions only substance use type: denies use current occupational status: employed Travel in the last 8 weeks: None housing: house [facility] Anesthesia Checklist Patient Identification Patient Identification: Arm Band Structural Data Admitted From: Home Planned Operative Procedure/s: Laparoscopic Cholecystectomy Consent for Planned Operative Procedure(s) Verified: Yes Verified Documents: Surgical Consent and History and Physical NPO Status Verified Time NPO: 00:00 Additional verifications Anesthesia Reactions: No Hx Blood Transfusions: No Blood Transfusion Reaction: No Airway Assessment Mallampati Score:: Class II C-Spine Mobility Assessed: Yes TMJ Mobility Assessed: Yes Dentition: Good Dentition Neurological Assessment Level of Consciousness: Awake, Alert and Appropriate Anesthesia Plan Anesthesia Risk discussed: Yes Anesthesia Plan: Verified ASA Class: II Anesthesia Type: General
[2024-03-21] MEDS: CEFAZOLIN SODIUM 1 GM in 0.9 % SODIUM CHLORIDE 50 ML IV (08:25)
[2024-03-21] MEDS: ROPIVACAINE 0.5% 30ML VIAL 150 MG (08:53)
[2024-03-21] MEDS: LIDOCAINE 1% 20ML MDV 20 ML (08:54)
--- NOTE | 2024-03-21 09:28 | P.OP_ITS ---
Date of procedure: 03/21/24 Pre-op Diagnosis:: Symptomatic gallstones Post-op Diagnosis:: Same Procedure performed:: Laparoscopic cholecystectomy Surgeon:: Danny Guidry MD ULTIMATE HOOPS REFEREE:: Tien Bowen Anesthesia: GETHaley Estimated blood loss (mL): 20 Clinical Note:: Patient presents for cholecystectomy. She is a 28-year-old female referred by Veronica Ferrer for gallbladder. She was seen in the emergency department on 02/07/2024. At that time she was having abdominal pain and vomiting. She was noted to have tenderness to palpation in the right upper quadrant and epigastrium. At that time she had a CT scan of the abdomen and pelvis performed which revealed mild gallbladder wall thickening. It was stated that this was a nonspecific finding, although may represent acute cholecystitis. No calcified gallstones. Recommendations were that she potentially undergo arrangements for upper endoscopy to be scheduled through her primary care provider. She underwent an outpatient ultrasound on 02/10/2024 which reveals gallstones. Patient does state that she has had some degree of symptoms for quite some time with epigastric and right upper quadrant pain radiating into her back. However, when she was seen in the emergency department on 02/07/2024 it was quite severe. She states that it is often worse after she eats but occasionally occurs without eating. She states that [place] food is particularly bothersome. She has had some subsequent symptoms consistent with biliary colic attacks. She was seen in the office on 02/25/2024. Options were discussed. She wished to pursue cholecystectomy. Operative findings:: She had distended gallbladder with some small to moderate stones. There were a few omental adhesions to the gallbladder. Operative note:: Consent was obtained and patient was taken the operating room. She was positioned in supine position. General anesthesia was induced via endotracheal tube. Abdomen was prepped and draped in the standard surgical fashion. Subumbilical skin incision was made and while performing abdominal wall lift Veress needle was inserted. CO2 pneumoperitoneum was achieved to 15 mmHg. 11 mm trocar was inserted at the umbilicus. Intraperitoneal contents were visualized. She was positioned in reverse Trendelenburg and left side down. A couple 5 mm trocars were inserted in the right abdomen. 11 mm trocar was ins erted in the epigastrium. There was some mild fatty infiltration of the liver with a few punctate nodules consistent with some saponification. Gallbladder was grasped retracted anteriorly over the dome of the liver. There were few adhesions of omentum to the gallbladder which were taken down using blunt dissection. Infundibulum of the gallbladder was retracted anterior laterally. Careful dissection was carried out at the neck of the gallbladder bluntly incising the visceral peritoneum. Some use of GEOFF ultrasonic harmonic edna was used to dissected the cystic duct and cystic artery free. They were clearly identified in the critical view of safety. Cystic duct was then multiply clipped and sharply divided. Cystic artery was carefully coagulated with GEOFF ultrasonic robotic edna and divided. Gallbladder was dissected free from the liver in a retrograde fashion using GEOFF ultrasonic harmonic edna. Gallbladder was placed within an Endo Catch retrieval device and removed from the peritoneal cavity via the umbilical trocar site. Residual fluid around the gallbladder fossa and perihepatic space was suctioned free. There was good hemostasis. Trocars were then removed as CO2 pneumoperitoneum was evacuated. Fascia at the umbilicus was closed with a couple of interrupted 0 Vicryl sutures. 0 Vicryl sutures placed in the anterior fascia at the epigastric side. Local anesthetic was infiltrated. Skin incisions were closed with 4-0 Monocryl subcuticular fashion. Dermabond and dressings were applied. . Condition: stable Disposition: PACU Complications:: None immediately apparent
--- NOTE | 2024-03-21 09:38 | EXP.ANES.I ---
[facility] Anesthesia Record Part I Anesthesia Record I Intake, IV Amount: 1,600 Hydration: Adequate Estimated blood loss (mL): 0 Urine output (mL): 0 Blood Pressure: 110/63 SaO2: 96 Pulse Rate: 102 Airway Patency: Patent Respiratory Rate: 14 Temperature: 97.8 F Patient is:: Awake and Stable Stable to PACU at:: 09:38
--- NOTE | 2024-03-21 11:56 | P.PNANES_ITS ---
[facility] Anesthesia Record Part II Anesthesia Record Part II Discharge Time: 10:08 Destination: Surgical Day Care (OP Surgery) PACU nurse assessment reviewed?: Yes Patient Condition:: Good Anesthesia Complications:: None Swallowing reflex intact?: Yes Airway Patency: Patent Cyanosis?: No Blood Pressure: 100/57 SaO2: 92 Respiratory Rate: 16 Pulse Rate: 72 Temperature: 98.1 F Mental Status: Alert & Oriented Pain level:: 0 Nausea and/or vomitting:: None Intake, IV Amount: 0 Hydration: Adequate
== END 2024-03-21 10:39 | disposition home or self-care (01) ==
PROVIDERS: PCP Nurse Practitioner; Visit Provider Surgery
PROC: 0FT44ZZ Resection of Gallbladder, Percutaneous Endoscopic Approach (ICD-10-PCS; CPT 47562; principal; 2024-03-21 09:30)
DX: K80.20 Calculus of gallbladder without cholecystitis without obstruction (principal)
CPT/HCPCS: 47562; 96374; J1885; J2250; J2405; J2710; J3010; J7120

== ENCOUNTER 2024-04-19 13:36 | Emergency (ER) | payer OTHER, SELFPAY ==
[2024-04-19 13:55] VITALS: BP 105/61; PULSE 79; RESP 21; TEMP 36.7; O2SAT 100; BMI 24.3
--- NOTE | 2024-04-19 13:56 | EXP.UTC ---
Discharge Plan Disposition Patient Disposition: Home, Self-Care Condition: Good Prescriptions Prescriptions: New amoxicillin 875 mg tablet 875 mg PO Q12H Qty: 20 0RF [id number]-[id number] [Bromfed DM] 2-30-10 mg/5 mL Syrup 5 ml PO Q6H PRN (Reason: Cough) Qty: 240 0RF No Action spironolactone 100 mg Tablet 100 mg PO DAILY Referrals Follow up/Referrals: Veronica Patten APRN [Primary Care Provider] - See instructions Activity Restrictions/Add. Instructions Additional Instructions/Restrictions: Drink plenty of fluids. Take tylenol or ibuprofen for pain or fever. Take the medications as directed. Follow up with your regular doctor. GO TO THE ER FOR ANY WORSENING SYMPTOMS Clinical Impressions Clinical Impression: Sinusitis, Otitis media Instructions Patient Instructions: Sinusitis, DI for Sinusitis Print Language Print Language: Bel[place]ian Discharge ED Provider: Ko Rubi [facility] General Stated complaint: congestion, nausea, headache, ear pain Time Seen by Provider: 04/19/24 13:56 Related Data Home Medications ?Medication ?Instructions ?Recorded ?Confirmed spironolactone 100 mg tablet 100 mg PO DAILY 04/19/24 04/19/24 Previous Rx's ?Medication ?Instructions ?Recorded amoxicillin 875 mg tablet 875 mg PO Q12H #20 tabs 04/19/24 [id number]-cyjrvjxbdyoagmh-HY 5 ml PO Q6H PRN Cough #240 mL 04/19/24 2 mg-30 mg-10 mg/5 mL oral syrup (Bromfed DM) Allergies Allergy/AdvReac Type Severity Reaction Status Date / Time No Known Allergies Allergy Verified 04/12/24 09:18 [facility] Disclaimer: The information contained in this section may have been updated after the patient was seen, as this information can be updated by other users. Medical History (Updated 04/19/24 @ 14:43 by Ko Rubi APRN) Urinary tract infection Migraine Vaginitis Vaginal odor Anxiety Depression Surgical History History of laparoscopic cholecystectomy Hx of blepharoplasty Hx of tonsillectomy Hx of section Family History Other Cancer Diabetes FHx: mental illness Social History Smoking Status: Current every day smoker tobacco type: e-cigarettes second hand exposure: Yes alcohol intake: current alcohol intake frequency: holidays/special occasions only substance use type: denies use current occupational status: employed Travel in the last 8 weeks: None housing: house ROS Obtained: Yes All systems reviewed & no additional complaints except as documented Constitutional Constitutional: Reports chills and Reports fever(s) Eyes Eyes: Denies eye discharge ENT Ears, Nose, Mouth, and Throat: Reports as per HPI Cardiovascular Cardiovascular: Denies chest pain Respiratory Respiratory: Denies chest congestion and Reports cough Gastrointestinal Gastrointestingal: Reports nausea; Denies abdominal pain, constipation, cramping, diarrhea or vomiting Musculoskeletal Musculoskeletal: Denies arthralgias Integumentary/Breasts Skin/Breast: Denies rash Neurologic Neurologic: Denies paresthesias Physical Exam General General appearance: alert and in no apparent distress Head Head exam: atraumatic, normocephalic and normal inspection Eye Eye exam: Present normal appearance, PERRL and EOMI ENT ENT exam: Present mucous membranes moist and normal external ear exam Expanded ENT Exam TM/Canal exam: Bilateral TM: erythema and bulging Nose exam: Absent sinus tenderness Mouth exam: Present normal external inspection; Absent drooling Teeth exam: Present normal inspection Throat exam: Present tonsillar erythema, tonsillomegaly and tonsillar exudate Neck Neck exam: Present normal inspection, full ROM and trachea midline; Absent tenderness, meningismus or lymphadenopathy Chest Chest inspection: Present normal inspection and symmetric chest wall rise; Absent tenderness Respiratory Respiratory exam: Present normal lung sounds bilaterally; Absent respiratory distress, wheezes or stridor Cardiovascular Cardiovascular exam: Present regular rate and normal rhythm; Absent systolic murmur or diastolic murmur Abdominal Exam Abdominal exam: Present soft and normal bowel sounds; Absent distention, tenderness, guarding, rebound or rigidity Extremities Exam Extremities exam: Present normal inspection and normal capillary refill; Absent calf tenderness Back Exam Back exam: Present normal inspection and full ROM; Absent tenderness, CVA tenderness (R) or CVA tenderness (L) Neurological Exam Neurological exam: Present alert, oriented X3 and CN II-XII intact Psychiatric Psychiatric exam: Present normal affect and normal mood Skin Skin exam: Present warm, dry, intact and normal color Medical Decision Making Medical Records Medical records reviewed: No I reviewed the patient's medical records. Parish Inquiry Pt receiving controlled substance: No
[2024-04-19 14:12] LABS: UTC Strep Screen (Rapid) Negative (Negative)
[2024-04-19 14:39] VITALS: BP 105/61; PULSE 79; RESP 21; TEMP 36.7; O2SAT 100
== END 2024-04-19 14:48 | disposition home or self-care (01) ==
PROVIDERS: Emergency Provider Nurse Practitioner Family; PCP Nurse Practitioner
DX: H66.93 Otitis media, unspecified, bilateral (principal); J01.90 Acute sinusitis, unspecified; R51.9 Headache, unspecified
CPT/HCPCS: 87880; 99212; 99214; G0463

== ENCOUNTER 2024-05-26 22:33 | Emergency (ER) | payer OTHER, SELFPAY ==
[2024-05-26 22:35] VITALS: BP 107/81; PULSE 79; RESP 16; TEMP 36.6; O2SAT 97; BMI 23.8
--- NOTE | 2024-05-26 22:53 | ED_ITS ---
Discharge Plan Disposition Patient Disposition: Home, Self-Care Prescriptions Prescriptions: New doxycycline hyclate 100 mg capsule 100 mg PO BID 7 Days Qty: 14 0RF ondansetron 4 mg tablet,disintegrating 4 mg PO Q6H PRN (Reason: nausea and vomiting) Qty: 10 0RF No Action spironolactone 100 mg Tablet 100 mg PO DAILY amoxicillin 875 mg tablet 875 mg PO Q12H Qty: 20 0RF [id number]-swqrycedc-NB [Bromfed DM] 2-30-10 mg/5 mL Syrup 5 ml PO Q6H PRN (Reason: Cough) Qty: 240 0RF Referrals Follow up/Referrals: Veronica Patten APRN [Primary Care Provider] - See instructions Activity Restrictions/Add. Instructions Additional Instructions/Restrictions: Call your family doctor to establish care for this visit to the emergency department and schedule follow-up within 48 hours to ensure improvement. If you have any worsening of your condition or any other concerning signs or symptoms, return to the emergency department or your primary care doctor for further evaluation. Doxycycline twice daily for 7 days Clinical Impressions Clinical Impression: Breast abscess Instructions Patient Instructions: DI for Skin Abscess Print Language Print Language: Tunisian Discharge ED Provider: Trace Schreiber General Adult HPI General Chief complaint: Skin/Abscess/Foreign Body Stated complaint: Knot on left breast with swelling,warm,painful Time Seen by Provider: 05/26/24 22:37 Mode of Arrival: Ambulatory Source of Information: Patient Limitations: No Limitations Description of Symptoms (Recalled from ER Triage Doc. by RN): pt reports that approximately 2 days ago she noticed a red avril on the underside of her left breast about the size of a quarter that has progressively gotten larger to approximately a golf ball size lump. the lump has became painful even when lying down. patient reports pain, redness and nausea but denies any fevers. History of Present Illness HPI narrative: Please note that above description of symptoms, in this electronic medical record under categorization of recalled from ER triage doctor by RN are reflective of an initial nursing assessment, however, is not reflective of my full history and physical exam that was personally taken and clarified. Consequentially, this preceding description of symptoms, which may include the patient's categorized chief complaint in the EMR, do not reflect my personal clinical impression, and the ultimate description of history of present illness and patient stated complaints should be deferred to this section of the note. Unless stated otherwise or congruent with this section of the note, additional signs, symptoms, or incongruence should be interpreted as inaccurate with my clinical impression. Related Data Home Medications ?Medication ?Instructions ?Recorded ?Confirmed spironolactone 100 mg tablet 100 mg PO DAILY 04/19/24 04/19/24 Previous Rx's ?Medication ?Instructions ?Recorded amoxicillin 875 mg tablet 875 mg PO Q12H #20 tabs 04/19/24 [id number]-lypemqtymqfdfec-YC 5 ml PO Q6H PRN Cough #240 mL 04/19/24 2 mg-30 mg-10 mg/5 mL oral syrup (Bromfed DM) doxycycline hyclate 100 mg capsule 100 mg PO BID 7 days #14 caps 05/26/24 ondansetron 4 mg disintegrating 4 mg PO Q6H PRN nausea and 05/26/24 tablet vomiting #10 tabs Allergies Allergy/AdvReac Type Severity Reaction Status Date / Time No Known Allergies Allergy Verified 04/12/24 09:18 [facility] Disclaimer: The information contained in this section may have been updated after the patient was seen, as this information can be updated by other users. Medical History (Updated 05/26/24 @ 22:53 by Trace Schreiber MD) Urinary tract infection Migraine Vaginitis Vaginal odor Anxiety Depression Surgical History History of laparoscopic cholecystectomy Hx of blepharoplasty Hx of tonsillectomy Hx of section Family History Other Cancer Diabetes FHx: mental illness Social History Smoking Status: Current every day smoker tobacco type: e-cigarettes second hand exposure: Yes alcohol intake: current alcohol intake frequency: holidays/special occasions only substance use type: denies use current occupational status: employed Travel in the last 8 weeks: None housing: house ROS Obtained: Yes All systems reviewed & no additional complaints except as documented Physical Exam General General appearance: alert Head Head exam: atraumatic and normocephalic Eye Eye exam: Present normal appearance, PERRL and EOMI Neck Neck exam: Present normal inspection, full ROM and trachea midline Chest Chest inspection: Present abscess (Tenderness, fluctuance, erythema inferior lateral aspect of left breast) Respiratory Respiratory exam: Absent respiratory distress, wheezes, stridor, accessory muscle use or prolonged expiratory phase Cardiovascular Cardiovascular exam: Present other (Pulses equal symmetric in upper and lower extremities) Abdominal Exam Abdominal exam: Present soft; Absent distention, tenderness, guarding, rebound, rigidity or pulsatile mass Extremities Exam Extremities exam: Absent edema Neurological Exam Neurological exam: Present alert, oriented X3 and CN II-XII intact; Absent motor sensory deficit Skin Skin exam: Present warm and dry; Absent diaphoresis or erythema Medical Decision Making Medical Records Medical records reviewed: Yes I reviewed the patient's medical records. Screening: Per USPSTF and CDC recommendations, given the prevalence of disease in our region, it is our hospital?s policy to screen for HIV and viral Hepatitis for all patients aged 18 and over and those with ongoing risk factors. Parish Inquiry Pt receiving controlled substance: No Parish was queried for this patient: No Vital Signs: 05/26/24 22:35 Temperature 97.9 F Temperature Source Oral Pulse Rate [Right] 79 Respiratory Rate 16 Blood Pressure [Right Arm] 107/81 L Blood Pressure Mean [Right Arm] 89 02 Sat by Pulse Oximetry 97 Oxygen Delivery Method Room Air Orders (Tests/Meds): ED MEDICATIONS Discontinued Medications Generic Name Dose Route Start Last Admin Trade Name Freq PRN Reason Stop Dose Admin Doxycycline Hyclate 100 mg 05/26/24 22:49 Doxycycline Hycl 100 Mg Tablet PO 05/26/24 22:50 ONCE ONE ORDERS Category Date Time Status POCUS Point of Care (ER Only) Stat Exams 05/26/24 22:40 Ordered Medical Decision Narrative: 28-year-old female no relevant medical history presenting with swelling, redness, tenderness left breast. Started 2 days ago, has progressed until today when she noticed a red pinpoint dot at the left lower outer portion of her breast. States it has gotten progressively worse throughout the day and is now large, red, tender. Denies fevers, chills, vomiting, diarrhea, history of breast surgeries, or any other concerns. Did have mastitis while she was breast-feeding years ago, has not had any symptoms since. No other history of abscesses.. History was obtained via conversation with patient. On arrival, patient hemodynamically stable, alert, oriented x4, appropriate, GCS 15, moving all extremities spontaneously, pupils equal and reactive to light. Full physical exam performed and significant for redness, erythema, induration and fluctuance left inferior lateral aspect of breast. Right about 4 o'clock position located 4 to 5 cm from the areola. Differential includes cellulitis, abscess, among others. Bedside [id number] ultrasound performed and patient has 1 cm fluid collection about 2 cm deep below the breast tissue. Because patient well-appearing with no systemic signs or symptoms, less than 2 cm, I feel this is amenable to trial of outpatient antibiotic therapy. This was relayed to patient, she voiced her understanding and is agreeable to outpatient management and trial of p.o. antibiotics. Because patient at baseline without signs or symptoms of clinical decompensation, deemed appropriate for discharge. Results were relayed to patient who voiced understanding and were agreeable to outpatient management and follow up. I discussed my clinical impression with patient and answered all questions. At this time, the evidence for any other entities in the differential is insufficient to warrant any further testing or ED observation. This was explained as well. Advisory was given that persistent or worsening symptoms require further evaluation. I confirmed the understanding of this discussion. Behavioral Health Assistant disclaimer Much of this encounter note is an electronic make ready mechanic spoken language to printed text. Electronic make ready mechanic of the spoken language may permit errors. Although I have reviewed the note, some errors may still exist. Procedures Limited Ultrasound Indication:: Limited soft tissue ultrasound Indication: Soft tissue swelling and redness Identified structures: Location: Left breast Findings: Fluid collection concerning for abscess less than 1 cm Impression: Fluid collection left breast abscess Images were saved to permanent archive The study was technically adequate Soft Tissue CPT Codes: CPT Neck: 40335-12 CPT Upper extremity: 46690-37 CPT Axilla: 97500-98 CPT Chest wall: 97867-39 CPT Breast: 61896-98-BE/LT (complete), 81625-54-CO/LT (limited), CPT Upper Back: 33257-65 CPT Lower Back: 26445-46 CPT Abdominal Wall: 44492-33 CPT Pelvic Wall: 37519-50 CPT Lower Extremity: 48649-57 CPT Other Soft Tissue: 58134-57 This study was performed by me, and I personally interpreted all images/videos. Based on my clinical judgement, these images were adequate and did not necessitate further imaging. Critical Care Critical Care Time Critical Care Time: No
[2024-05-26] MEDS: DOXYCYCLINE HYCL 100 MG TABLET PO (22:55)
[2024-05-26 22:56] VITALS: BP 107/81; PULSE 74; RESP 18; TEMP 37; O2SAT 100
== END 2024-05-26 22:58 | disposition home or self-care (01) ==
PROVIDERS: Emergency Provider Emergency Medicine; PCP Nurse Practitioner
DX: N61.1 Abscess of the breast and nipple (principal); N64.4 Mastodynia
CPT/HCPCS: 99284

== ENCOUNTER 2024-07-18 14:17 | Emergency (ER) | payer OTHER, SELFPAY ==
[2024-07-18 16:19] VITALS: BP 98/54; PULSE 59; RESP 18; TEMP 36.9; O2SAT 99; BMI 24.1
--- NOTE | 2024-07-18 16:41 | EXP.UTC ---
Discharge Plan Disposition Patient Disposition: Home, Self-Care Condition: Good Prescriptions Prescriptions: New methocarbamol 500 mg tablet 500 mg PO BID PRN (Reason: muscle spasm) Qty: 10 0RF Referrals Follow up/Referrals: Veronica Patten APRN [Primary Care Provider] - See instructions Activity Restrictions/Add. Instructions Additional Instructions/Restrictions: Go home lay down and try to sleep off remainder of migraine headache Take muscle relaxer as prescribed Follow up with your Family Doctor if no improvement Straight to ER if any life threatening symptoms Clinical Impressions Clinical Impression: Headache Qualifiers: Headache type: other headache syndrome Qualified Code(s): G44.89 - Other headache syndrome Instructions Patient Instructions: DI for Headache, Methocarbamol, DI for Muscle Spasm Print Language Print Language: German Discharge ED Provider: Indu Mosley [facility] General Stated complaint: neck pain, migraine Mode of Arrival: Ambulatory Source of Information: Patient Time Seen by Provider: 07/18/24 16:41 Description of Symptoms (Recalled from Triage Doc. by RN): MIGRAINES X3 WEEKS,, ACHY NECK PAIN, TIGHT MUSCLES HEENT Symptoms (Recalled from RN notes): Yes Resp Symptoms (Recalled from RN notes): No Skin Symptoms (Recalled from RN notes): No MS Symptoms (Recalled from RN notes): No Functional Status (Recalled from RN notes): WNL History of Present Illness Provider Complaint: Patient states that she has a hx of migraines States that she has been having migraine on and off for a couple weeks and muscle spasm like pain in her neck states that she has old neck injury denies new injury Reports took 800mg ibuprofen 3 hours ago Reports not worse headache of her life and like others she has had before Related Data Previous Rx's ?Medication ?Instructions ?Recorded methocarbamol 500 mg tablet 500 mg PO BID PRN muscle spasm #10 07/18/24 tabs Allergies Allergy/AdvReac Type Severity Reaction Status Date / Time No Known Allergies Allergy Verified 04/12/24 09:18 Worker's Comp Is this a Worker's Comp case?: No [facility] Disclaimer: The information contained in this section may have been updated after the patient was seen, as this information can be updated by other users. Medical History (Updated 07/18/24 @ 16:53 by Indu Mosley APRN) Urinary tract infection Migraine Vaginitis Vaginal odor Anxiety Depression Surgical History History of laparoscopic cholecystectomy Hx of blepharoplasty Hx of tonsillectomy Hx of section Family History Other Cancer Diabetes FHx: mental illness Social History Smoking Status: Current every day smoker tobacco type: e-cigarettes second hand exposure: Yes alcohol intake: current alcohol intake frequency: holidays/special occasions only substance use type: denies use current occupational status: employed Travel in the last 8 weeks: None housing: house ROS Obtained: Yes All systems reviewed & no additional complaints except as documented and Yes Systems reviewed as appropriate & no additional complaints except as documented Constitutional Constitutional: Reports system reviewed and no additional complaints, except as documented, Reports as per HPI and Reports headache(s) Eyes Eyes: Reports system reviewed and no additional complaints, except as documented and Reports as per HPI ENT Ears, Nose, Mouth, and Throat: Reports system reviewed and no additional complaints, except as documented, Reports as per HPI, Reports headache(s) and Reports neck pain (muscle spasm like pain in neck/shoulder area) Cardiovascular Cardiovascular: Reports system reviewed and no additional complaints, except as documented and Reports as per HPI Respiratory Respiratory: Reports system reviewed and no additional complaints, except as documented and Reports as per HPI Gastrointestinal Gastrointestingal: Reports system reviewed and no additional complaints, except as documented and as per HPI Musculoskeletal Musculoskeletal: Reports system reviewed and no additional complaints, except as documented, Reports as per HPI and Reports neck pain (muscle spasm like pain in neck/shoulder area) Neurologic Neurologic: Reports headache(s) Physical Exam General General appearance: alert and in no apparent distress Eye Eye exam: Present normal appearance, PERRL and EOMI ENT ENT exam: Present normal exam, normal oropharynx, mucous membranes moist and TM's normal bilaterally Neck Neck exam: Present tenderness (reports tightness/spasm like pain with movement goes up into back of head, denies new injury) Expanded Neck Exam Neck exam focused ED: Present tenderness (other) Neck image: 1. reports tightness, goes up into back of head with movement denies new injury Respiratory Respiratory exam: Present normal lung sounds bilaterally; Absent respiratory distress or wheezes Cardiovascular Cardiovascular exam: Present regular rate, normal rhythm and normal heart sounds Neurological Exam Neurological exam: Present alert, oriented X3 and normal gait Medical Decision Making Medical Records Screening: Per USPSTF and CDC recommendations, given the prevalence of disease in our region, it is our hospital?s policy to screen for HIV and viral Hepatitis for all patients aged 18 and over and those with ongoing risk factors. Parish Inquiry Pt receiving controlled substance: No Parish was queried for this patient: No Vital Signs: 07/18/24 16:19 Temperature 98.4 F Temperature Source Oral Pulse Rate [Left Radial] 59 L Respiratory Rate 18 Blood Pressure [Left Arm] 98/54 L Blood Pressure Mean [Left Arm] 68 02 Sat by Pulse Oximetry 99 Medical Decision Narrative: Patient had taken 800mg of Ibuprofen 3 hours before arrival spoke with pharmacy will give Ubrelvy for migraine, Patient reports tightness and muscle spasm in neck, discussed xray patient declined
[2024-07-18] MEDS: UBROGEPANT 50MG TABLET 50 MG PO (16:56)
[2024-07-18 17:18] VITALS: BP 98/54; PULSE 59; RESP 18; TEMP 36.9
== END 2024-07-18 17:26 | disposition home or self-care (01) ==
PROVIDERS: Emergency Provider Nurse Practitioner; PCP Nurse Practitioner
DX: G44.89 Other headache syndrome (principal)
CPT/HCPCS: 99213; G0381

== ENCOUNTER 2025-01-10 10:53 | Outpatient (CLI) | payer OTHER, SELFPAY | END 2025-01-10 23:59 | disposition home or self-care (01) | LOC: LAB.DROPOF 01-12 10:53 | PROVIDERS: Visit Provider Student in an Organized Health Care Education/Training Program | DX: R50.9 Fever, unspecified (principal) | CPT/HCPCS: 87635 ==